=== PATIENT | female | born 1940 | race Caucasian/White ===

== ENCOUNTER → 2017-04-29 | Outpatient (CLI) | payer MEDICARE, MEDICAID ==
[~2017-04-29] MED LIST: ACETAMINOPHEN500 M3 PO; ACTOS30 MG PO; ACTOS45 M1 PO; ACTOS45 MG PO; AMARYL 4MG. TAB4 MG PO; AMBIEN 5MG TAB5 MG PO; AMLODIPINE BES1 CAP PO; AMOXICILLIN500 M2 PO; APAP/OXYCODONE1 TA1 PO; ASPIRIN 325MG325 MG PO; ASPIRIN EC325 MG PO; BENAZEPRIL HYDR20 MG PO; BENICAR20 MG PO; BISOPROLOL 5MG T5 MG PO; BYSTOLIC10 MG PO; BYSTOLIC20 MG PO; BYSTOLIC5 MG PO; CENTRUM SILVER1 TAB PO; CLARITIN10 MG PO; CRESTOR20 MG PO; FERROUS SULFAT325 M2 PO; GABAPENTIN 600600 MG PO; GLUCOPHAGE 500500 MG PO; GLYBURIDE 5MG TA5 MG PO; GLYBURIDE/METFO1 TA2 PO; Glyburide and M1 TAB; Glyburide and M1 TAB PO; HUMALOG MIX75/253 ML SC; HUMALOG100 U/ML SC; HYDROCODONE-APA1 TA1 PO; IMODIUM 2MG. CAP2 MG PO; LACTULOSE10 GM/15 M PO; LANTUS INS100 UNITS/ SC; LEVOFLOXACIN 5500 M1 PO; LORATADINE 10MG10 M1 PO; LORTAB 5/3251 TAB PO; LORTAB 5/500 501 TAB PO; LOTENSIN 20MG T20 MG PO; LOVENOX 4040 MG/0.4 SC; MACROBID100 M3 PO; MACRODANTIN100 MG PO; METFORMIN HCL1000 MG PO; MIRALAX(PO17 GM/1 PA PO; MIRALAX17 GM/DOSE PO; NEXIUM40 MG; NEXIUM40 MG PO; NORCO 325 MG-51 TAB PO; NOVOLOG MI100 UNITS/ SC; OSCAL 500MG. T500 MG PO; PHENERGAN 25MG.25 M1 PO; REGLAN 5MG TABLE5 MG PO; TYLENOL325 MG PO; URBAN 360 ML360 ML PO; VALIUM 5MG TABLE5 MG PO; VALIUM5 MG PO
--- NOTE | 2017-04-29 17:29 | RADIOLOGY REPORT PS360 ---
[id number] VIEWS HISTORY: FU FX HUMERUS Patient Age: 76 years: Female Ordering Physician: AVELINA MCNEILL MD TECHNIQUE: 3 views left shoulder COMPARISON :02/24/2017 FINDINGS The displaced fracture of the humeral neck is again identified. Medial /anterior displacement distal fracture fragment. The generous angulation at the fracture best seen on initial CT. Glenohumeral joint relationship grossly intact. Previous fixation of the left humeral shaft is noted distally from remote past. AC joint arthropathy. Demineralization. Pronounced Downward sloping of acromion noted IMPRESSION: Comminuted fracture of the neck of the humerus. Seems to be fairly stable position. Only question Some very early healing.
== END ==
LOC: RAD 12:29
DX: S42.202D Unspecified fracture of upper end of left humerus, subsequent encounter for fracture with routine healing (principal)

== ENCOUNTER 2017-07-04 21:26 | Inpatient (IN) | payer MEDICARE, MEDICAID ==
[~2017-07-04] VITALS: Ht 167.6 cm; Wt 88.5 kg
[~2017-07-04 21:26] MED LIST changes: +DIAZEPAM2 MG PO; -VALIUM 5MG TABLE5 MG PO
[2017-07-04 21:29] VITALS: BP 123/50
--- OUTSIDE RECORDS SUMMARY | 2017-07-04 21:36 | External Medical Summary Rpt | CCD ---
Author Author , MUKUL MENJIVARSEE Address Unknown Phone [email or web address] Care Team Providers Care Soliciting Freight Agent Name Role Phone [facility] Unavailable Unavailable ASSOCIATES, [facility] MANUEL MANSFIELD, Unavailable Unavailable MANUEL MANSFIELD [facility] Unavailable Unavailable INC, [facility], Unavailable Unavailable [facility] Unavailable Unavailable [facility], [facility] NELA SINGH, Unavailable Unavailable NELA SINGH [facility] Un[facility] Un[facility] COMM[facility]ITY [facility], [facility] Unavailable Unavailable INTERNAL MED, [facility] Unavailable Unavailable INTERNAL MEDI, [facility], [facility] ELADIO GRISSOM, Unavailable Unavailable ELADIO GRISSOM [facility] Unavailable Unavailable AMBULANCE SE, [facility], Unavailable Unavailable PLLC, [facility] Unavailable Unavailable SERVICE, [facility] Unavailable Unavailable HEALTH CARE, [facility] Purpose Continuity of Care Document - 08-22-2008 through 2016 Problems Code Diagnosis DOS Provider Status E119 TYPE 2 05-10-2017 [facility] DI[facility]ET[facility] WITHOUT COMPLICATIO NS E785 HYPERLIPIDE 05-10-2017 [facility] UNSPECIFIED HEALTH CARE G5630 LESION OF 05-10-2017 [place] RADIAL [facility] NERVE [facility] CARE UNSPECIFIED UPPER LIMB I10 ESSENTIAL 05-10-[address] [facility] HYPERTENSIO HEALTH CARE N K219 GASTRO-ESOP 05-10-2017 [facility] REFLUX [facility] DISEASE HEALTH CARE WITHOUT ESOPHAGITIS [id number] WRIST DROP 05-10-2017 [place] LEFT WRIST [facility] CARE N390 URINARY 05-10-2017 [place] TRACT [facility] INFECTION HEALTH CARE SITE NOT SPECIFIED [id number] UNS 05-10-2017 [facility] LOWER END HEALTH CARE UNS HUMERUS SEQUELA [id number] UNS FX 04-29-[address] [facility] LT HUMERUS INC SUBSQT FX RTN HLNG [id number] UNS DSPLCD 04-29-2017 [place] FX SURG MEDICAL NECK LT HUM IMAGING ASS SUB FX RTN HLNG [id number] OTHER LONG 04-14-2017 AZERBAIJANI [facility] HEALTH CURRENT ASSOCIATES DRUG THERAPY 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 R69 ILLNESS 03-12-2017 [place] [facility]PECIFIED [facility] E109 TYPE 1 03-11-2017 AZ[facility]IJ[facility] MELLITUS ASSOCIATES WITHOUT COMPLICATIO NS E875 HYPERKALEMI 03-11-2017 [facility] A [facility] E878 OTHER D/O 03-05-2017 AZERBAIJANI OF [facility] ELECTROLYTE ASSOCIATES AND FLUID BALANCE NEC R24850 PAIN IN 02-24-2017 [facility] RIGHT FOOT [facility] [id number] FX HUM FLW 02-24-2017 [facility] INSRT ORTHO [facility] IMPL JNT INC PROS/PLAT LT ARM [id number] DSPL FX 02-24-2017 [place] [facility] PHALANX RT IMAGING ASS GREAT TOE SBSQT FX RTN [id number] NONDSPL FX 02-24-2017 [facility] PROX PHALNX PHYSICIANS RT GREAT GROUP TOE SBSQT RTN [id number] DSPL FX 02-24-2017 [place] PR[facility] PHALNX MEDICAL RT LESSER IMAGING ASS TOES SBSQT FX RTN [id number] NONDSPLC FX 02-24-2017 [facility] PROX PHAL PHYSICIANS RT LESSER GROUP TOES SUB FX RTN J9811 ATELECTASIS 01-04-2017 [facility] J47834 PAIN IN 01-04-2017 [place] LEFT MEDICAL SHOULDER IMAGING ASS O44273 PAIN IN 01-04-2017 [place] LEFT WRIST MEDICAL IM[facility]ING ASS R39210 PAIN IN 01-04-2017 [place] LEFT HIP MEDICAL [facility] ASS M542 CERVICALGIA 01-04-2017 [facility] R0789 OTHER CHEST 01-04-2017 [place] PAIN [facility] [id number] CONTUSION 01-04-2017 [place] OF [facility] INITIAL IMAGING ASS ENCOUNTER [id number] UNS FX 01-04-2017 [facility] END PH[facility]ANS, LT HUMERUS PLLC INIT CLOS FRACTURE [id number] UNS DSPLCD 01-04-2017 [place] FX SURG MEDICAL NECK LT IMAGING ASS HUMERUS INIT CLOS FX [id number] NONDISPLACE 01-04-2017 [facility] UNS FX RT PHYSICIANS, GREAT TOE PLLC INIT CLOS FX [id number] DSPL FX 01-04-2017 [place] PR[facility]ICAL PHALANX RT IMAGING ASS GREAT TOE INIT CLOS FX [id number] DSPL FX 01-04-2017 [place] PROX PHALNX MEDICAL RT LESSER IMAGING ASS TOES INIT DAYO FX T07 UNSPECIFIED 01-04-2017 [facility] INJURIES AMBULANCE SE [id number] UNSPECIFIED 01-04-2017 [facility] INITIAL AMBULANCE ENCOUNTER SE Z794 PRISON 01-04-2017 [facility] CURRENT USE [facility] OF INSULIN INC R202 PARESTHESIA 10-20-2016 [facility] OF SKIN PHYSICIANS GROUP [id number] UNS FX 10-20-2016 [place] SHAFT HUM MEDICAL LT ARM IMAGING ASS SUBSQT ENC FX RTN HLNG D649 ANEMIA 09-15-2016 [facility] INTERNAL MEDI R05 COUGH 08-22-2016 [facility] SERVICE R296 REPEATED 08-16-2016 [facility] 55806 DIAB W/O 11-24-2008 SAMANTHA, COMP TYPE NELA E II/UNS NOT STATED UNCNTRL 2859 UNSPECIFIED 11-24-2008 SAMANTHA, ANEMIA NELA E 5990 URINARY 11-14-2008 SAMANTHA, TRACT NELA E INFECTION SITE NOT SPECIFIED 7241 PAIN IN 11-02-2008 [facility] 7242 LUMBAGO 11-02-2008 [facility] 88972 UNSPECIFIED 10-30-2008 SAMANTHA, NELA E CONSTIPATIO N 65823 ABDOMINAL 10-28-2008 [place] [facility] UNSPECIFIED SERVICES SITE ASSOCIATES 82410 UNS 09-22-2008 SAMANTHA, GASTRITIS&G NELA E ASTRODUODIT IS W/O MENTION HEMORR 2724 OTHER AND 08-22-2008 SAMANTHA, UNSPECIFIED NELA E HYPERLIPIDE GEORGE 4011 ESSENTIAL 08-22-2008 SAMANTHA, HYPERTENSIO NELA E N, BENIGN 05482 ABDOMINAL 08-22-2008 SAMANTHA, PAIN, NELA E EPIGASTRIC V5869 LONG-TERM 08-22-2008 [facility]CURRENT[facility] USE OF INC OTHER MEDICATIONS D64.9 ANEMIA, UNSPECIFIED E04.1 NONTOXIC SINGLE THYROID NODULE E11.9 TYPE 2 DIABETES MELLITUS WITHOUT COMPLICATIO NS G56.01 CARPAL TUNNEL SYNDROME, RIGHT UPPER LIMB G56.20 LESION OF ULNAR NERVE, UNSPECIFIED UPPER LIMB K11.7 DISTURBANCE S OF SALIVARY SECRETION K43.9 VENTRAL HERNIA WITHOUT OBSTRUCTION OR GANGRENE L29.9 PRURITUS, UNSPECIFIED N39.0 URINARY TRACT INFECTION, SITE NOT SPECIFIED R10.9 UNSPECIFIED ABDOMINAL PAIN R53.1 WEAKNESS R55 SYNCOPE AND COLLAPSE R94.31 ABNORMAL ELECTROCARD IOGRAM [ECG] [EKG] S20.219A CONTUSION OF UNSPECIFIED FRONT WALL OF THORAX, INIT ENCNTR S42.302A UNSP FRACTURE OF SHAFT OF HUMERUS, LEFT ARM, INIT S42.309A UNSP FRACTURE OF SHAFT OF HUMERUS, UNSP ARM, INIT S60.219A CONTUSION OF UNSPECIFIED WRIST, INITIAL ENCOUNTER S70.00XA CONTUSION OF UNSPECIFIED HIP, INITIAL ENCOUNTER S76.019A STRAIN OF MUSCLE, FASCIA AND TENDON OF UNSP HIP, INIT ENCNTR S92.911A UNSP FRACTURE OF RIGHT TOE(S), INIT FOR CLOS FX Allergies, Adverse Reactions, Alerts Clinical Alert Notifications Alert Diabetes: no eye exam in the last 365 days Diabetes: no lipid panel in the last 365 days Diabetes: no urine protein screening in the last 365 days Medications Na ND Rx Da Fi Fi Am Da Di Ph RX Ph St me C No te ll ll ou ys ag ar # ys at rm s nt no ma ic us Or Da si cy ia de te s n re d FE 00 01 11 0 60 30 ME 15 BE Ac RR 53 -2 -1 0. D 30 SS ti OU 61 3- 7- 00 CA 30 EN ve S 00 20 20 0 RE 66 JEAN 90 17 17 MA LF 1 PH TT AT AR HE E MA W 32 CY 5 MG LL C TA BL ET 00 01 11 0 30 30 ME 15 BE Ac TA 90 -2 -0 0. D 25 SS ti WA 45 3- 8- 00 CA 01 ON ve N 04 20 20 0 RE 82 AN [address] D 0 PH EP WA AR HE NE MA N RA CY A LS LL TA C BL ET OY 00 01 11 0 30 30 ME [address] 90 -2 -0 0. D 25 SS ti ER 41 3- 8- 00 CA 01 ON ve 88 20 20 0 RE 84 SH [address] EL 0 PH EP L AR HE CA MA N LC CY A IU M LL 50 C 0 MG TB LO 00 01 11 0 30 30 ME 15 BE Ac RA 78 -2 -0 0. D 25 SS ti TA 15 3- 8- 00 CA 01 ON ve DI 07 20 20 0 RE 85 NE [address] 1 PH EP 10 AR HE MA N MG CY A TA LL BL C ET 00 01 11 0 30 30 ME 15 BE Ac PI 53 -2 -0 0. D 23 SS ti RI 61 3- 6- 00 CA 71 ON ve N 05 20 20 0 RE 91 [address] 5 5 PH EP MG AR HE MA N TA CY A BL ET LL C FE 00 01 10 0 60 30 ME 15 BE Ac RR 53 -2 -1 0. D 13 SS ti OU 61 3- 8- 00 CA 37 EN ve S 00 20 20 0 RE 50 JEAN 90 17 17 MA LF 1 PH TT AT AR HE E MA W 32 CY 5 MG LL C TA BL ET 00 01 10 0 30 30 ME 15 BE Ac TA 90 -2 -0 0. D 08 SS ti WA 45 3- 9- 00 CA 24 ON ve N 04 20 20 0 RE 13 AN [address] D 0 PH EP WA AR HE NE MA N RA CY A LS LL TA C BL ET LO 00 01 10 0 30 30 ME 15 BE Ac RA 78 -2 -0 0. D 08 SS ti TA 15 3- 9- 00 CA 24 ON ve DI 07 20 20 0 RE 16 NE [address] 1 PH EP 10 AR HE MA N MG CY A TA LL BL C ET OY 00 01 10 0 30 30 ME [address] 90 -2 -0 0. D 08 SS ti ER 41 3- 9- 00 CA 24 ON ve 88 20 20 0 RE 15 SH [address] EL 0 PH EP L AR HE CA MA N LC CY A IU M LL 50 C 0 MG TB 00 01 10 0 30 30 ME 15 BE Ac PI 53 -2 -0 0. D 07 SS ti RI 61 3- 7- 00 CA 61 ON ve N 05 20 20 0 RE 02 [address] 5 5 PH EP MG AR HE MA N TA CY A BL ET LL C FE 00 01 09 0 60 30 ME 14 BE Ac RR 53 -2 -1 0. D 95 SS ti OU 61 3- 8- 00 CA 85 EN ve S 00 20 20 0 RE 37 JEAN 90 17 17 MA LF 1 PH TT AT AR HE E MA W 32 CY 5 MG LL C TA BL ET 00 01 09 0 30 30 ME 14 BE Ac TA 90 -2 -0 0. D 92 SS ti WA 45 3- 9- 00 CA 71 ON ve N 04 20 20 0 RE 10 AN [address] D 0 PH EP WA AR HE NE MA N RA CY A LS LL TA C BL ET LO 00 01 09 0 30 30 ME 14 BE Ac RA 78 -2 -0 0. D 92 SS ti TA 15 3- 9- 00 CA 71 ON ve DI 07 20 20 0 RE 12 NE [address] 1 PH EP 10 AR HE MA N MG CY A TA LL BL C ET OY 00 01 09 0 30 30 ME [address] 90 -2 -0 0. D 92 SS ti ER 41 3- 9- 00 CA 71 ON ve 88 20 20 0 RE 11 SH [address] EL 0 PH EP L AR HE CA MA N LC CY A IU M LL 50 C 0 MG TB 00 01 09 0 30 30 ME 14 BE Ac PI 53 -2 -0 0. D 90 SS ti RI 61 3- 8- 00 CA 84 ON ve N 05 20 20 0 RE 50 [address] 5 5 PH EP MG AR HE MA N TA CY A BL ET LL C FE 00 01 08 0 60 30 ME 14 BE Ac RR 53 -2 -1 0. D 79 SS ti OU 61 3- 9- 00 CA 04 EN ve S 00 20 20 0 RE 46 JEAN 90 17 17 MA LF 1 PH TT AT AR HE E MA W 32 CY 5 MG LL C TA BL ET OY 00 01 08 0 30 30 ME [address] 90 -2 -1 0. D 75 SS ti ER 41 3- 1- 00 CA 13 ON ve 88 20 20 0 RE 88 SH [address] EL 0 PH EP L AR HE CA MA N LC CY A IU M LL 50 C 0 MG TB LO 00 01 08 0 30 30 ME 14 BE Ac RA 78 -2 -1 0. D 75 SS ti TA 15 3- 1- 00 CA 13 ON ve DI 07 20 20 0 RE 89 NE [address] 1 PH EP 10 AR HE MA N MG CY A TA LL BL C ET 00 01 08 0 30 30 ME 14 BE Ac TA 90 -2 -1 0. D 75 SS ti WA 45 3- 1- 00 CA 13 ON ve N 04 20 20 0 RE 86 AN [address] D 0 PH EP WA AR HE NE MA N RA CY A LS LL TA C BL ET 00 01 08 0 30 30 ME 14 BE Ac PI 53 -2 -1 0. D 74 SS ti RI 61 3- 0- 00 CA 31 ON ve N 05 20 20 0 RE 14 [address] 5 5 PH EP MG AR HE MA N TA CY A BL ET LL C FE 00 01 07 0 60 30 ME 14 BE Ac RR 53 -2 -1 0. D 57 SS ti OU 61 3- 3- 00 CA 24 EN ve S 00 20 20 0 RE 94 JEAN 90 17 17 MA LF 1 PH TT AT AR HE E MA W 32 CY 5 MG LL C TA BL ET 00 01 07 0 30 30 ME 14 BE Ac TA 90 -2 -1 0. D 57 SS ti WA 45 3- 3- 00 CA 24 ON ve N 04 20 20 0 RE 95 AN [address] D 0 PH EP WA AR HE NE MA N RA CY A LS LL TA C BL ET OY 00 01 07 0 30 30 ME [address] 90 -2 -1 0. D 57 SS ti ER 41 3- 3- 00 CA 24 ON ve 88 20 20 0 RE 97 SH [address] EL 0 PH EP L AR HE CA MA N LC CY A IU M LL 50 C 0 MG TB LO 00 01 07 0 30 30 ME 14 BE Ac RA 78 -2 -1 0. D 57 SS ti TA 15 3- 3- 00 CA 24 ON ve DI 07 20 20 0 RE 98 NE [address] 1 PH EP 10 AR HE MA N MG CY A TA LL BL C ET 00 01 07 0 30 30 ME 14 BE Ac PI 53 -2 -1 0. D 56 SS ti RI 61 3- 2- 00 CA 50 ON ve N 05 20 20 0 RE 62 [address] 5 5 PH EP MG AR HE MA N TA CY A BL ET LL C LO 00 01 06 0 30 30 ME 14 BE Ac RA 78 -2 -1 0. D 38 SS ti TA 15 3- 4- 00 CA 83 ON ve DI 07 20 20 0 RE 06 NE [address] 1 PH EP 10 AR HE MA N MG CY A TA LL BL C ET OY 00 01 06 0 30 30 ME [address] 90 -2 -1 0. D 38 SS ti ER 41 3- 4- 00 CA 83 ON ve 88 20 20 0 RE 05 SH [address] EL 0 PH EP L AR HE CA MA N LC CY A IU M LL 50 C 0 MG TB 00 01 06 0 30 30 ME 14 BE Ac TA 90 -2 -1 0. D 38 SS ti WA 45 3- 4- 00 CA 83 ON ve N 04 20 20 0 RE 03 AN [address] D 0 PH EP WA AR HE NE MA N RA CY A LS LL TA C BL ET FE 00 01 06 0 60 30 ME 14 BE Ac RR 53 -2 -1 0. D 38 SS ti OU 61 3- 4- 00 CA 83 EN ve S 00 20 20 0 RE 02 JEAN 90 17 17 MA LF 1 PH TT AT AR HE E MA W 32 CY 5 MG LL C TA BL ET 00 01 06 0 30 30 ME 14 BE Ac PI 53 -2 -1 0. D 37 SS ti RI 61 3- 3- 00 CA 89 ON ve N 05 20 20 0 RE 73 [address] 5 5 PH EP MG AR HE MA N TA CY A BL ET LL C BI 00 06 06 0 70 7 ME 14 BE Ac SC 90 -0 -0 .0 D 31 SS ti OL 45 1- 1- 00 CA 47 ON ve AX 05 20 20 RE [address] 10 2 PH EP AR HE MG MA N CY A JEAN PP LL OS C IT OR Y OY 00 01 05 0 30 30 ME [address] 90 -2 -1 0. D 20 SS ti ER 41 3- 7- 00 CA 95 ON ve 88 20 20 0 RE 67 SH [address] EL 0 PH EP L AR HE CA MA N LC CY A IU M LL 50 C 0 MG TB FE 00 01 05 0 60 30 ME 14 BE Ac RR 53 -2 -1 0. D 20 SS ti OU 61 3- 7- 00 CA 95 EN ve S 00 20 20 0 RE 64 JEAN 90 17 17 MA LF 1 PH TT AT AR HE E MA W 32 CY 5 MG LL C TA BL ET LO 00 01 05 0 30 30 ME 14 BE Ac RA 78 -2 -1 0. D 20 SS ti TA 15 3- 7- 00 CA 95 ON ve DI 07 20 20 0 RE 68 NE [address] 1 PH EP 10 AR HE MA N MG CY A TA LL BL C ET 00 01 05 0 30 30 ME 14 BE Ac TA 90 -2 -1 0. D 20 SS ti WA 45 3- 7- 00 CA 95 ON ve N 04 20 20 0 RE 65 AN [address] D 0 PH EP WA AR HE NE MA N RA CY A LS LL TA C BL ET 00 01 05 0 30 30 ME 14 BE Ac PI 53 -2 -1 0. D 19 SS ti RI 61 3- 6- 00 CA 54 ON ve N 05 20 20 0 RE 67 [address] 5 5 PH EP MG AR HE MA N TA CY A BL ET LL C 00 01 04 0 30 30 ME 14 BE Ac TA 90 -2 -1 0. D 06 SS ti WA 45 3- 9- 00 CA 31 ON ve N 04 20 20 0 RE 56 AN [address] D 0 PH EP WA AR HE NE MA N RA CY A LS LL TA C BL ET FE 00 01 04 0 60 30 ME 14 BE Ac RR 53 -2 -1 0. D 06 SS ti OU 61 3- 9- 00 CA 31 EN ve S 00 20 20 0 RE 55 JEAN 90 17 17 MA LF 1 PH TT AT AR HE E MA W 32 CY 5 MG LL C TA BL ET LO 00 01 04 0 30 30 ME 14 BE Ac RA 78 -2 -1 0. D 06 SS ti TA 15 3- 9- 00 CA 31 ON ve DI 07 20 20 0 RE 59 NE [address] 1 PH EP 10 AR HE MA N MG CY A TA LL BL C ET OY 00 01 04 0 30 30 ME [address] 90 -2 -1 0. D 06 SS ti ER 41 3- 9- 00 CA 31 ON ve 88 20 20 0 RE 58 SH [address] EL 0 PH EP L AR HE CA MA N LC CY A IU M LL 50 C 0 MG TB 00 01 04 0 30 30 ME 14 BE Ac PI 53 -2 -1 0. D 02 SS ti RI 61 3- 2- 00 CA 92 ON ve N 05 20 20 0 RE 50 [address] 5 5 PH EP MG AR HE MA N TA CY A BL ET LL C FE 00 01 03 0 60 30 ME 13 BE Ac RR 53 -2 -2 0. D 91 SS ti OU 61 3- 1- 00 CA 72 EN ve S 00 20 20 0 RE 31 JEAN 90 17 17 MA LF 1 PH TT AT AR HE E MA W 32 CY 5 MG LL C TA BL ET OY 00 01 03 0 30 30 ME [address] 90 -2 -2 0. D 91 SS ti ER 41 3- 1- 00 CA 72 ON ve 88 20 20 0 RE 34 SH [address] EL 0 PH EP L AR HE CA MA N LC CY A IU M LL 50 C 0 MG TB 00 01 03 0 30 30 ME 13 BE Ac TA 90 -2 -2 0. D 91 SS ti WA 45 3- 1- 00 CA 72 ON ve N 04 20 20 0 RE 32 AN [address] D 0 PH EP WA AR HE NE MA N RA CY A LS LL TA C BL ET LO 00 01 03 0 30 30 ME 13 BE Ac RA 78 -2 -2 0. D 91 SS ti TA 15 3- 1- 00 CA 72 ON ve DI 07 20 20 0 RE 35 NE [address] 1 PH EP 10 AR HE MA N MG CY A TA LL BL C ET 00 01 03 0 30 30 ME 13 BE Ac PI 53 -2 -1 0. D 90 SS ti RI 61 3- 6- 00 CA 99 ON ve N 05 20 20 0 RE 02 [address] 5 5 PH EP MG AR HE MA N TA CY A BL ET LL C OY 00 01 02 0 30 30 ME [address] 90 -2 -2 0. D 77 SS ti ER 41 3- 0- 00 CA 01 ON ve 88 20 20 0 RE 58 SH [address] EL 0 PH EP L AR HE CA MA N LC CY A IU M LL 50 C 0 MG TB 00 01 02 0 30 30 ME 13 BE Ac TA 90 -2 -2 0. D 77 SS ti WA 45 3- 0- 00 CA 01 ON ve N 04 20 20 0 RE 55 AN [address] D 0 PH EP WA AR HE NE MA N RA CY A LS LL TA C BL ET LO 00 01 02 0 30 30 ME 13 BE Ac RA 78 -2 -2 0. D 77 SS ti TA 15 3- 0- 00 CA 01 ON ve DI 07 20 20 0 RE 60 NE [address] 1 PH EP 10 AR HE MA N MG CY A TA LL BL C ET FE 00 01 02 0 60 30 ME 13 BE Ac RR 90 -2 -2 0. D 77 SS ti OU 47 3- 0- 00 CA 01 EN ve S 59 20 20 0 RE 54 JEAN 18 17 17 MA LF 0 PH TT AT AR HE E MA W 32 CY 5 MG LL C TA BL ET 00 01 02 0 30 30 ME 13 BE Ac PI 53 -2 -2 0. D 76 SS ti RI 61 3- 0- 00 CA 57 ON ve N 05 20 20 0 RE 10 [address] 5 5 PH EP MG AR HE MA N TA CY A BL ET LL C FE 00 01 01 0 60 30 ME 13 BE Ac RR 90 -2 -2 0. D 64 SS ti OU 47 3- 3- 00 CA 38 EN ve S 59 20 20 0 RE 15 JEAN 18 17 17 MA LF 0 PH TT AT AR HE E MA W 32 CY 5 MG LL C TA BL ET 00 01 01 0 30 30 ME 13 BE Ac TA 90 -2 -2 0. D 64 SS ti WA 45 3- 3- 00 CA 38 ON ve N 04 20 20 0 RE 17 AN [address] D 0 PH EP WA AR HE NE MA N RA CY A LS LL TA C BL ET OY 00 01 01 0 30 30 ME [address] 90 -2 -2 0. D 64 SS ti ER 41 3- 3- 00 CA 38 ON ve 88 20 20 0 RE 24 SH [address] EL 0 PH EP L AR HE CA MA N LC CY A IU M LL 50 C 0 MG TB 00 01 01 0 30 30 ME 13 BE Ac PI 53 -2 -2 0. D 64 SS ti RI 61 3- 3- 00 CA 38 ON ve N 05 20 20 0 RE 27 [address] 5 5 PH EP MG AR HE MA N TA CY A BL ET LL C LO 00 01 01 0 30 30 ME 13 BE Ac RA 78 -2 -2 0. D 64 SS ti TA 15 3- 3- 00 CA 38 ON ve DI 07 20 20 0 RE 26 NE [address] 1 PH EP 10 AR HE MA N MG CY A TA LL BL C ET Encounters Encounter Start End Date Code Location Performer Type Date [facility] [address] [place] [address] [facility] [address] [place] [address] - [facility] [address] [place] [address] [facility] OTHER 7 [facility] [place] [facility] 7 7 [facility] 7 7 [facility] [place] [facility] [address] [facility] [place] [facility] 7 7 [facility] [place] [facility] [address] [facility] [place] [facility] [address] [facility] [place] [facility] [address] [facility] [place] [facility] [address] [facility] [place] [facility] [address] [facility] 6 6 [facility] - 9 9 [facility] - 9 9 [facility] - 9 9 [facility]
--- OUTSIDE RECORDS SUMMARY | 2017-07-04 21:36 | External Medical Summary Rpt | CCD ---
Author Author , MUKUL MENJIVARSEE Address Unknown Phone [email or web address] Care Team Providers Care Matzo Forming Machine Operator Name Role Phone [facility] Unavailable Unavailable ASSOCIATES, [facility] [employer] [facility] MANUEL MANSFIELD, Unavailable Unavailable MANUEL MANSFIELD [facility] Unavailable Unavailable INC, [facility] Unavailable Unavailable [facility] Unavailable Unavailable [facility], [facility] NELA SINGH, Unavailable Unavailable NELA SINGH [facility] Unavailable Unavailable [facility], [facility] Unavailable Unavailable [facility], [facility] Unavailable Unavailable [facility], [facility], [facility] ELADIO GRISSOM, Unavailable Unavailable ELADIO GRISSOM [facility] Unavailable Unavailable AMBULANCE SE, [facility], Unavailable Unavailable PLLC, [facility] Unavailable Unavailable SERVICE, [facility] Unavailable Unavailable HEALTH CARE, [facility] Purpose Continuity of Care Document - 08-22-2008 through 2016 Problems Code Diagnosis DOS Provider Status E119 TYPE 2 05-10-2017 [place] DIABET[facility] WITHOUT COMPLICATIO NS E785 HYPERLIPIDE 05-10-2017 [facility] UNSPECIFIED HEALTH CARE G5630 LESION OF 05-10-2017 [place] RADIAL [facility] UNSPECIFIED UPPER LIMB I10 ESSENTIAL 05-10-2017 [facility] HYPERTENSIO HEALTH CARE N K219 GASTRO-ESOP 05-10-2017 [facility] REFLUX [facility] DIS[facility]ASE [facility] WITHOUT ESOPHAGITIS [id number] WRIST DROP 05-10-2017 [place] LEFT WRIST [facility] C[facility] N390 URINARY 05-10-2017 [place] TRACT [facility] INFECTION [facility] SITE NOT SPECIFIED [id number] UNS 05-10-2017 [facility] UNS HUMERUS SEQUELA [id number] UNS FX 04-29-2017 [place] [facility] HUMERUS INC SUBSQT FX RTN HLNG [id number] UNS DSPLCD 04-29-2017 [place] [facility]ICAL NECK LT HUM IMAGING ASS SUB FX RTN HLNG [id number] OTHER LONG 04-14-[address] 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 R69 ILLNESS 03-12-2017 [place] [facility]NSPECIFIED [facility] E109 TYPE 1 03-11-2017 [facility] WITHOUT COMPLICATIO NS E875 HYPERKALEMI 03-11-2017 [facility] E878 OTHER D/O 03-05-2017 [facility] ELECTROLYTE ASSOCIATES AND FLUID BALANCE NEC V22940 PAIN IN 02-24-2017 [facility] RIGHT [facility]OT [facility] Q25721 FX HUM FLW 02-24-2017 [facility] INSRT ORTHO [facility] IMPL JNT INC PROS/PLAT LT ARM [id number] DSPL FX 02-24-2017 [place] [facility] RT IMAGING ASS GREAT TOE SBSQT FX RTN [id number] NONDSPL FX 02-24-2017 [facility] PROX PHALNX PHYSICIANS RT GREAT GROUP TOE SBSQT RTN U58974S DSPL FX 02-24-2017 [place] PR[facility] PHALNX MEDICAL RT LESSER IMAGING ASS TOES SBSQT FX RTN [id number] NONDSPLC FX 02-24-2017 [facility] PROX PHAL PHYSICIANS RT LESSER GROUP TOES SUB FX RTN J9811 ATELECTASIS 01-04-2017 [facility] Q50411 PAIN IN 01-04-2017 [place] LEFT MEDICAL SHOULDER IM[facility] C21031 PAIN IN 01-04-2017 [place] LEFT WRIST [facility]ICAL [facility] B16786 PAIN IN 01-04-2017 [place] LEFT HIP [facility]ICAL [facility] M542 CERVICALGIA 01-04-2017 [facility] R0789 OTHER CHEST 01-04-2017 [place] [facility]IN [facility] H5111YU CONTUSION 01-04-2017 [place] OF [facility] INITIAL IMAGING ASS ENCOUNTER U06647Q UNS FX 01-04-2017 [facility] END [facility], LT HUMERUS PLLC INIT CLOS FRACTURE K76242S UNS DSPLCD 01-04-2017 [place] FX SURG MEDICAL NECK LT IMAGING ASS HUMERUS INIT CLOS FX [id number] NONDISPLACE 01-04-2017 [facility] UNS FX RT PHYSICIANS, GREAT TOE PLLC INIT CLOS FX [id number] DSPL FX 01-04-2017 [place] PROX [facility]ICAL PHALANX RT IMAGING ASS GREAT TOE INIT CLOS FX [id number] DSPL FX 01-04-2017 [place] PROX PHALNX MEDICAL RT LESSER IMAGING ASS TOES INIT DAYO FX T07 UNSPECIFIED 01-04-2017 [facility] INJURIES AMBULANCE SE [id number] UNSPECIFIED 01-04-2017 [facility] INITIAL AMBULANCE ENCOUNTER SE Z794 NURSING HOME 01-04-2017 [facility] CURRENT USE [facility] OF INSULIN INC R202 PARESTHESIA 10-20-2016 [facility] OF SKIN PHYSICIANS GROUP U27927N UNS FX 10-20-2016 [place] SHAFT HUM MEDICAL LT ARM IMAGING ASS SUBSQT ENC FX RTN HLNG D649 ANEMIA 09-15-2016 [place] [facility] INTERNAL MEDI R05 COUGH 08-22-2016 [facility] R296 REPEATED 08-16-2016 [place] [facility] MED 97893 DIAB W/O 11-24-2008 SAMANTHA, COMP TYPE NELA E II/UNS NOT STATED UNCNTRL 2859 UNSPECIFIED 11-24-2008 SAMANTHA, ANEMIA NELA E 5990 URINARY 11-14-2008 SAMANTHA, TRACT NELA E INFECTION SITE NOT SPECIFIED 7241 PAIN IN 11-02-2008 [place] [facility] 7242 LUMBAGO 11-02-2008 [facility] 74885 UNSPECIFIED 10-30-2008 SAMANTHA, NELA E CONSTIPATIO N 22782 ABDOMINAL 10-28-2008 [place] [facility] UNSPECIFIED SERVICES SITE ASSOCIATES 50988 UNS 09-22-2008 SAMANTHA, GASTRITIS&G NELA E ASTRODUODIT IS W/O MENTION HEMORR 2724 OTHER AND 08-22-2008 SAMANTHA, UNSPECIFIED NELA E HYPERLIPIDE GEORGE 4011 ESSENTIAL 08-22-2008 SAMANTHA, HYPERTENSIO NELA E N, BENIGN 10763 ABDOMINAL 08-22-2008 SAMANTHA, PAIN, NELA E EPIGASTRIC [...] -2 -0 0. D 25 SS ti ND 45 3- 8- 00 CA 01 ON ve N 04 20 20 0 RE 82 AN [address] D 0 PH EP ND AR HE NE MA N RA CY [...] -2 -0 0. D 08 SS ti ND 45 3- 9- 00 CA 24 ON ve N 04 20 20 0 RE 13 AN [address] D 0 PH EP ND AR HE NE MA N RA CY [...] -2 -0 0. D 92 SS ti ND 45 3- 9- 00 CA 71 ON ve N 04 20 20 0 RE 10 AN [address] D 0 PH EP ND AR HE NE MA N RA CY [...] -2 -1 0. D 75 SS ti ND 45 3- 1- 00 CA 13 ON ve N 04 20 20 0 RE 86 AN [address] D 0 PH EP ND AR HE NE MA N RA CY [...] -2 -1 0. D 57 SS ti ND 45 3- 3- 00 CA 24 ON ve N 04 20 20 0 RE 95 AN [address] D 0 PH EP ND AR HE NE MA N RA CY [...] -2 -1 0. D 38 SS ti ND 45 3- 4- 00 CA 83 ON ve N 04 20 20 0 RE 03 AN [address] D 0 PH EP ND AR HE NE MA N RA CY [...] -2 -1 0. D 20 SS ti ND 45 3- 7- 00 CA 95 ON ve N 04 20 20 0 RE 65 AN [address] D 0 PH EP ND AR HE NE MA N RA CY [...] -2 -1 0. D 06 SS ti ND 45 3- 9- 00 CA 31 ON ve N 04 20 20 0 RE 56 AN [address] D 0 PH EP ND AR HE NE MA N RA CY [...] -2 -2 0. D 91 SS ti ND 45 3- 1- 00 CA 72 ON ve N 04 20 20 0 RE 32 AN [address] D 0 PH EP ND AR HE NE MA N RA CY [...] -2 -2 0. D 77 SS ti ND 45 3- 0- 00 CA 01 ON ve N 04 20 20 0 RE 55 AN [address] D 0 PH EP ND AR HE NE MA N RA CY [...] -2 -2 0. D 64 SS ti ND 45 3- 3- 00 CA 38 ON ve N 04 20 20 0 RE 17 AN [address] D 0 PH EP ND AR HE NE MA N RA CY [...] End Date Code Location Performer Type Date [facility] [place] [facility] [address] [place] [address] [place] [facility] [place] [facility] [address] [place] [address] - [place] [facility] [address] [place] [address] [facility] 7 7 [facility] OTHER 7 [address] [facility] [place] [facility] 7 [facility] - 7 7 [facility] ON LICENSE OF [facility] [place] [facility] - 7 7 [facility] ON LICENSE OF [facility] [place] [facility] 7 7 [facility] [place] [facility] - 7 7 [facility] ON LICENSE OF [facility] [place] [facility] 7 7 [facility] [place] [facility] 7 7 [facility] [place] [facility] 7 7 [facility] [place] [facility] 7 7 [facility] [place] [facility] 6 6 [facility] [place] [facility] 6 6 [facility] - 9 9 [facility] - 9 9 [facility] - 9 9 [facility]
--- OUTSIDE RECORDS SUMMARY | 2017-07-04 21:39 | External Medical Summary Rpt ---
Author Author TIARASEE Axxana, MUKUL Axxana Organization [employer] Address Unknown Phone Unavailable Results Thyroxine (T4) free [Mass/volume] in Serum or Plasma Observa Value Referen Units Interpr Notes Date tion ce etation Range Thyroxine 0.76 - ng/dL Normal No Feb 19 (T4) 1.46 informati 2016 2:00 free on in PM [Mass/vol source ume] in data Serum or Plasma Thyrotropin [Units/volume] in Serum or Plasma Observa Value Referen Units Interpr Notes Date tion ce etation Range Thyrotrop 0.358 - uIU/ml No No Feb 19 in 3.740 informati informati 2016 2:00 [Units/vo on in on in PM lume] in source source Serum or data data Plasma Free T4 & TSH panel in Serum or Plasma Observa Value Referen Units Interpr Notes Date tion ce etation Range Thyroxine 5.93 - ug/dl Low No January 04 (T4) 13.13 informati 2016 3:45 free on in AM index in source Serum or data Plasma Triiodoth 31 - 39 % Normal No January 04 yronine informati 2016 3:45 (T3) on in AM resin source uptake in data Serum or Plasma Thyroxine 4.7 - ug/dl Normal No January 04 (T4) 13.3 informati 2016 3:45 [Mass/vol on in AM ume] in source Serum or data Plasma Thyrotrop 0.358 - uIU/ml High No January 04 in 3.740 informati 2016 3:45 [Units/vo on in AM lume] in source Serum or data Plasma INR in Blood by Coagulation assay Observa Value Referen Units Interpr Notes Date tion ce etation Range IS PATIENT ON ANTICOAGULANTS? N PTT RESULTS MUST BE CALLED IF PT ON HEPARIN!!! Y INR in 0.9 - 1.1 No Normal INDICATIO January 04 Blood by informati N 2016 3:45 Coagulati on in AM on assay source INR data RANGETHER APY FOR DVT, PE, ATRIAL FIB; 2.0 - 3.0PROPHY LAXIS FOR VTETHERAP Y FOR MECHANICA L HEART 2.5 - 3.5VALVE; PREVENTIO N OF SYSTEMICE MBOLISM SECONDARY TO AMI Prothromb 9.4 - SECONDS Normal No January 04 in time 11.8 inform2016 3:45 (PT) in on in AM Platelet source poor data plasma by Coagulati on assay CBC W Auto Differential panel in Blood Observa Value Referen Units Interpr Notes Date tion ce etation Range Basophils 0 - 0.2 K/MM3 Normal No January 042016 3:15 [#/volume on in AM ] in source Blood by data Automated count Basophils 0.1 - 2.0 % Normal No January 04 / informati 2016 3:15 leukocyte on in AM s in source Blood by data Automated count Eosinophi 0.0 - 0.4 K/mm3 Normal January 04 ls ati 2016 3:15 [#/volume on in AM ] in source Blood by data Automated count Eosinophi 0.1 - % Normal January 04 ls/100 12.0 informati 2016 3:15 leukocyte on in AM s in source Blood by data Automated count Granulocy 1.8 - 7.8 K/mm3 Normal No January 04 lola ati 2016 3:15 [#/volume on in AM ] in source Blood by data Automated count Granulocy 37.0 - % Normal No January 04 lola/100 80.0 informati 2016 3:15 leukocyte on in AM s in source Blood by data Automated count Hematocri 37.0 - % Low January 04 t [Volume 47.0 ati 2016 3:15 on in AM Fraction] source of Blood data Hemoglobi 12.2 - g/dL Low No January 04 n 16.2 informati 2016 3:15 [Mass/vol on in AM ume] in source Blood data Lymphocyt 0.7 - 4.5 K/mm3 Normal No January 04 es informati 2016 3:15 [#/volume on in AM ] in source Unspecifi data ed specimen by Automated count Lymphocyt 10 - 50.0 % Normal No January 04 es informati 2016 3:15 [#/volume on in AM ] in source Unspecifi data ed specimen by Automated count Erythrocy 27 - 31.2 pg Normal No January 04 te mean informati 2016 3:15 corpuscul on in AM ar source hemoglobi data n [Entitic mass] Erythrocy 31.8 - g/dl Low No January 04 te mean 35.4 informati 2016 3:15 corpuscul on in AM ar source hemoglobi data n concentra tion [Mass/vol ume] by Automated count Erythrocy 82.2 - fl Normal No January 04 te mean 97.8 informati 2016 3:15 corpuscul on in AM ar volume source [Entitic data volume] by Automated count Monocytes 0.1 - 1.0 K/mm3 Normal No January 04 informati 2016 3:15 [#/volume on in AM ] in source Blood by data Automated count Monocytes 1.7 - 9.3 % Normal No January 04 /100 informati 2016 3:15 leukocyte on in AM s in source Blood by data Automated count Platelet 7.4 - fl Normal January 04 mean 10.4 informati 2016 3:15 volume on in AM [Entitic source volume] data in Blood by Automated count Platelets 142 - 424 K/mm3 No No January 04 informati informati 2016 3:15 [#/volume on in on in AM ] in source source Blood data data Erythrocy 4.2 - 5.4 M/mm3 Low No January 04 lola informati 2016 3:15 [#/volume on in AM ] in source Amniotic data fluid Erythrocy 11.5 - % Normal No January 04 te 17.5 informati 2016 3:15 distribut on in AM ion width source [Entitic data volume] by Automated count Leukocyte 4.8 - K/MM3 Normal No January 04 s 10.8 informati 2016 3:15 [#/volume on in AM ] in source Blood data
--- OUTSIDE RECORDS SUMMARY | 2017-07-04 21:39 | External Medical Summary Rpt | CCD ---
Author Author , MUKUL Organization [employer] Address Unknown Phone [email or web address] Immunization Name Date Rout CVX Reac Dose Comm Prov Is Faci e tion ent ider Refu lity Give sed n Td 03-0 9 999 Hist H149 No H149 (rekha 4-19 oric lt), 97 al Info adso rmat rbed ion - Sour ce Unsp ecif ied
--- OUTSIDE RECORDS SUMMARY | 2017-07-04 21:39 | External Medical Summary Rpt | CCD ---
Author Author , MUKUL MENJIVARSEE Address Unknown Phone [email or web address] Care Team Providers Care Dip Tube Assembler Machine Name Role Phone [facility] Unavailable Unavailable ASSOC[facility]ATES, [facility] Unavailable Unavailable [facility] Unavailable Unavailable INC, [facility], Unavailable Unavailable [facility] Unavailable Unavailable IM[facility]ING [facility], [facility] NELA SINGH, Unavailable Unavailable NELA SINGH [facility] Unavailable Unavailable COMMUNITY ACT, [facility] Unavailable Unavailable INTERNAL MED, [facility] INTERNAL MED [facility] Unavailable Unavailable INTERNAL MEDI, [facility] INTERNAL MEDI [facility]available [facility], [facility] ELADIO GRISSOM, Unavailable Unavailable ELADIO GRISSOM [facility] Unavailable Unavailable AMBULANCE SE, [facility] AMBULANCE SE [facility], Unavailable Unavailable PLLC, [facility] Unavailable Unavailable SERVICE, [facility] Unavailable Unavailable HEALTH CARE, [facility] Purpose Continuity of Care Document - 08-22-2008 through 2016 Problems Code Diagnosis DOS Provider Status E119 TYPE 2 05-10-2017 [place] DIABETES [facility] MELLITUS HEALTH CARE WITHOUT COMPLICATIO NS E785 HYPERLIPIDE 05-10-2017 [facility] UNSPECIFIED HEALTH CARE G5630 LESION OF 05-10-2017 [facility] NERVE [facility] CARE UNSPECIFIED UPPER LIMB I10 ESSENTIAL 05-10-2017 [facility] HYPERTENSIO HEALTH CARE N K219 GASTRO-ESOP 05-10-2017 [facility] REFLUX [facility] DISEASE HEALTH CARE WITHOUT ESOPHAGITIS B99100 WRIST DROP 05-10-2017 [place] LEFT WRIST [facility] N390 URINARY 05-10-2017 [place] TRACT [facility] INFECTION HEALTH CARE SITE NOT SPECIFIED [id number] UNS 05-10-2017 [facility]ARE UNS HUMERUS SEQUELA [id number] UNS FX 04-29-2017 [facility] LT HUMERUS INC SUBSQT FX RTN HLNG [id number] UNS DSPLCD 04-29-2017 [place] FX SURG MEDICAL NECK LT HUM IMAGING ASS SUB FX RTN HLNG L57956 OTHER LONG 04-14-2017 [facility] CURRENT ASSOCIATES DRUG THERAPY 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 [facility] SINGLE PHYSICIANS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 R69 ILLNESS 03-12-2017 [place] UNSPECIFIED [facility] E109 TYPE 1 03-11-2017 [place] DIABETES [facility] MELLITUS ASSOCIATES WITHOUT COMPLICATIO NS E875 HYPERKALEMI 03-11-2017 [facility] E878 OTHER D/O 03-05-2017 [place] ELECTROLYTE ASSOCIATES AND FLUID BALANCE [facility] H39569 PAIN IN 02-24-2017 [facility] RIGHT FOOT [facility] F76746 FX HUM FLW 02-24-2017 [facility] INS[facility]THO [facility] IMPL JNT INC PROS/PLAT LT ARM [id number] DSPL FX 02-24-2017 [place] PROX MEDICAL PHALANX RT IMAGING ASS GREAT TOE SBSQT FX RTN [id number] NONDSPL FX 02-24-2017 [facility] PROX PHALNX PHYSICIANS RT GREAT GROUP TOE SBSQT RTN [id number] DSPL FX 02-24-2017 [place] PROX PHALNX MEDICAL RT LESSER IMAGING ASS TOES SBSQT FX RTN [id number] NONDSPLC FX 02-24-2017 [facility] PROX PHAL PHYSICIANS RT LESSER GROUP TOES SUB FX RTN J9811 ATELECTASIS 01-04-2017 [facility] R57425 PAIN IN 01-04-2017 [place] LEFT MEDICAL SHOULDER IMAGING ASS S75911 PAIN IN 01-04-2017 [place] LEFT WRIST MEDICAL IMAGING ASS B29615 PAIN IN 01-04-2017 [place] LEFT HIP MEDICAL IMAGING ASS M542 CERVICALGIA 01-04-2017 [facility] R0789 OTHER CHEST 01-04-2017 [place] PAIN MEDICAL IMAGING ASS [id number] CONTUSION 01-04-2017 [place] OF [place] MEDICAL INITIAL IMAGING ASS ENCOUNTER [id number] UNS FX 01-04-2017 [facility], LT HUMERUS PLLC INIT CLOS FRACTURE B56559B UNS DSPLCD 01-04-2017 [place] FX SURG MEDICAL NECK LT IMAGING ASS HUMERUS INIT CLOS FX [id number] NONDISPLACE 01-04-2017 [facility] UNS FX RT PHYSICIANS, GREAT TOE PLLC INIT CLOS FX [id number] DSPL FX 01-04-2017 [place] PROX MEDICAL PHALANX RT IMAGING ASS GREAT TOE INIT CLOS FX [id number] DSPL FX 01-04-2017 [place] PROX PHALNX MEDICAL RT LESSER IMAGING ASS TOES INIT DAYO FX T07 UNSPECIFIED 01-04-2017 [facility] INJURIES AMBULANCE SE [id number] UNSPECIFIED 01-04-2017 [facility] INITIAL AMBULANCE ENCOUNTER SE Z794 MCC 01-04-2017 [facility] CURRENT USE [facility] OF INSULIN INC R202 PARESTHESIA 10-20-2016 [facility] OF SKIN PHYSICIANS GROUP [id number] UNS FX 10-20-2016 [place] SHAFT HUM MEDICAL LT ARM IMAGING ASS SUBSQT ENC FX RTN HLNG D649 ANEMIA 09-15-2016 [place] [facility] INTERNAL MEDI R05 COUGH 08-22-2016 [facility] SERV[facility] R296 REPEATED 08-16-2016 [facility] MED 31187 DIAB W/O 11-24-2008 SAMANTHA, COMP TYPE NELA E II/UNS NOT STATED UNCNTRL 2859 UNSPECIFIED 11-24-2008 SAMANTHA, ANEMIA NELA E 5990 URINARY 11-14-2008 SAMANTHA, TRACT NELA E INFECTION SITE NOT SPECIFIED 7241 PAIN IN 11-02-2008 [place] [facility] 7242 LUMBAGO 11-02-2008 [facility] 42427 UNSPECIFIED 10-30-2008 SAMANTHA, NELA E CONSTIPATIO N 96880 ABDOMINAL 10-28-2008 [facility]IN, EMERGENCY UNSPECIFIED SERVICES SITE ASSOCIATES 48458 UNS 09-22-2008 SAMANTHA, GASTRITIS&G NELA E ASTRODUODIT IS W/O MENTION HEMORR 2724 OTHER AND 08-22-2008 SAMANTHA, UNSPECIFIED NELA E HYPERLIPIDE GEORGE 4011 ESSENTIAL 08-22-2008 SAMANTHA, HYPERTENSIO NELA E N, BENIGN 35488 ABDOMINAL 08-22-2008 SAMANTHA, PAIN, NELA E EPIGASTRIC V5869 LONG-TERM 08-22-2008 [facility] USE OF INC OTHER MEDICATIONS Medications Na ND Rx Da Fi Fi [...] -2 -0 0. D 25 SS ti PA 45 3- 8- 00 CA 01 ON ve N 04 20 20 0 RE 82 AN [address] D 0 PH EP PA AR HE NE MA N RA CY [...] C TA BL ET LO 00 01 10 0 30 30 ME 15 BE Ac RA 78 -2 -0 0. D 08 SS ti TA 15 3- 9- 00 CA 24 ON ve DI 07 20 20 0 RE 16 NE [address] 1 PH EP 10 AR HE MA N MG CY A TA LL BL C ET 00 01 10 0 30 30 ME 15 BE Ac TA 90 -2 -0 0. D 08 SS ti PA 45 3- 9- 00 CA 24 ON ve N 04 20 20 0 RE 13 AN [address] D 0 PH EP PA AR HE NE MA N RA CY A LS LL TA C BL ET OY 00 01 10 0 30 [...] -2 -0 0. D 92 SS ti PA 45 3- 9- 00 CA 71 ON ve N 04 20 20 0 RE 10 AN [address] D 0 PH EP PA AR HE NE MA N RA CY [...] LL C TA BL ET 00 01 08 0 30 30 ME 14 BE Ac TA 90 -2 -1 0. D 75 SS ti PA 45 3- 1- 00 CA 13 ON ve N 04 20 20 0 RE 86 AN [address] D 0 PH EP PA AR HE NE MA N RA CY A LS LL TA C BL ET OY 00 01 08 0 [...] A BL ET LL C 00 01 07 0 30 30 ME 14 BE Ac TA 90 -2 -1 0. D 57 SS ti PA 45 3- 3- 00 CA 24 ON ve N 04 20 20 0 RE 95 AN [address] D 0 PH EP PA AR HE NE MA N RA CY [...] LL BL C ET FE 00 01 07 0 60 30 [...] BL ET LL C OY 00 01 06 0 30 30 [...] -2 -1 0. D 38 SS ti PA 45 3- 4- 00 CA 83 ON ve N 04 20 20 0 RE 03 AN [address] D 0 PH EP PA AR HE NE MA N RA CY [...] C TA BL ET LO 00 01 06 0 30 30 ME 14 BE Ac RA 78 -2 -1 0. D 38 SS ti TA 15 3- 4- 00 CA 83 ON ve DI 07 20 20 0 RE 06 NE [address] 1 PH EP 10 AR HE MA N MG CY A TA LL BL C ET 00 01 06 0 30 30 [...] PP LL OS C IT OR Y 00 01 05 0 30 30 ME 14 BE Ac TA 90 -2 -1 0. D 20 SS ti PA 45 3- 7- 00 CA 95 ON ve N 04 20 20 0 RE 65 AN [address] D 0 PH EP PA AR HE NE MA N RA CY A LS LL TA C BL ET OY 00 01 05 0 30 30 [...] C 0 MG TB LO 00 01 05 0 30 30 ME 14 BE Ac RA 78 -2 -1 0. D 20 SS ti TA 15 3- 7- 00 CA 95 ON ve DI 07 20 20 0 RE 68 NE [address] 1 PH EP 10 AR HE MA N MG CY A TA LL BL C ET FE 00 01 05 0 60 30 ME 14 BE Ac RR 53 -2 -1 0. D 20 SS ti OU 61 3- 7- 00 CA 95 EN ve S 00 20 20 0 RE 64 JEAN 90 17 17 MA LF 1 PH TT AT AR HE E MA W 32 CY 5 MG LL C TA BL ET 00 01 05 0 30 30 ME 14 BE Ac PI 53 -2 -1 0. D 19 SS ti RI 61 3- 6- 00 CA 54 ON ve N 05 20 20 0 RE 67 [address] 5 5 PH EP MG AR HE MA N TA CY A BL ET LL C LO 00 01 04 0 30 30 [...] -2 -1 0. D 06 SS ti PA 45 3- 9- 00 CA 31 ON ve N 04 20 20 0 RE 56 AN [address] D 0 PH EP PA AR HE NE MA N RA CY [...] LL C TA BL ET 00 01 04 0 30 30 ME 14 BE Ac PI 53 -2 -1 0. D 02 SS ti RI 61 3- 2- 00 CA 92 ON ve N 05 20 20 0 RE 50 [address] 5 5 PH EP MG AR HE MA N TA CY A BL ET LL C OY 00 01 03 0 30 30 [...] C 0 MG TB LO 00 01 03 0 30 30 [...] -2 -2 0. D 91 SS ti PA 45 3- 1- 00 CA 72 ON ve N 04 20 20 0 RE 32 AN [address] D 0 PH EP PA AR HE NE MA N RA CY A LS LL TA C BL ET FE 00 01 03 0 60 30 ME 13 BE Ac RR 53 -2 -2 0. D 91 SS ti OU 61 3- 1- 00 CA 72 EN ve S 00 20 20 0 RE 31 JEAN 90 17 17 MA LF 1 PH TT AT AR HE E MA W 32 CY 5 MG LL C TA BL ET 00 01 03 0 30 30 ME 13 BE Ac PI 53 -2 -1 0. D 90 SS ti RI 61 3- 6- 00 CA 99 ON ve N 05 20 20 0 RE 02 [address] 5 5 PH EP MG AR HE MA N TA CY A BL ET LL C LO 00 01 02 0 30 30 ME 13 BE Ac RA 78 -2 -2 0. D 77 SS ti TA 15 3- 0- 00 CA 01 ON ve DI 07 20 20 0 RE 60 NE [address] 1 PH EP 10 AR HE MA N MG CY A TA LL BL C ET 00 01 02 0 30 30 ME 13 BE Ac PI 53 -2 -2 0. D 76 SS ti RI 61 3- 0- 00 CA 57 ON ve N 05 20 20 0 RE 10 [address] 5 5 PH EP MG AR HE MA N TA CY A BL ET LL C FE 00 01 02 0 60 30 ME 13 BE Ac RR 90 -2 -2 0. D 77 SS ti OU 47 3- 0- 00 CA 01 EN ve S 59 20 20 0 RE 54 JEAN 18 17 17 MA LF 0 PH TT AT AR HE E MA W 32 CY 5 MG LL C TA BL ET OY 00 01 02 0 30 30 [...] -2 -2 0. D 77 SS ti PA 45 3- 0- 00 CA 01 ON ve N 04 20 20 0 RE 55 AN [address] D 0 PH EP PA AR HE NE MA N RA CY A LS LL TA C BL ET 00 01 01 0 30 30 ME 13 BE Ac TA 90 -2 -2 0. D 64 SS ti PA 45 3- 3- 00 CA 38 ON ve N 04 20 20 0 RE 17 AN [address] D 0 PH EP PA AR HE NE MA N RA CY [...] C 0 MG TB LO 00 01 01 0 30 30 ME 13 BE Ac RA 78 -2 -2 0. D 64 SS ti TA 15 3- 3- 00 CA 38 ON ve DI 07 20 20 0 RE 26 NE [address] 1 PH EP 10 AR HE MA N MG CY A TA LL BL C ET 00 01 01 0 30 30 [...] 5 MG LL C TA BL ET Encounters Encounter Start End Date Code Location Performer Type Date [facility] [place] INPATIENT 7 7 [facility] - 7 7 [facility] [place] 7 [facility] [place] [facility]PAT[facility] 7 7 [facility] - 7 7 [facility] 7 7 [facility] [place] INPATIENT 7 7 [facility] - 7 7 [facility] [place] [facility] 7 7 [facility] - 7 7 [facility] 7 [facility] [place] [facility] 7 7 [facility] [place] [facility] 7 7 [facility] - 7 7 [facility] [place] [facility] 7 [facility] [place] [facility] [place] [facility] 7 7 [facility] [place] 7 [facility] [place] [facility] 6 6 [facility] [place] 6 [facility] - 9 9 [facility] - 9 9 [facility] - 9 9 [facility]
--- OUTSIDE RECORDS SUMMARY | 2017-07-04 21:39 | External Medical Summary Rpt | CCD ---
Author Author , MUKUL Organization MUKUL Address Unknown Phone [email or web address] Immunization Name Date Rout CVX Reac Dose Comm Prov Is Faci e tion ent ider Refu lity Give sed n Td 03-0 9 999 Hist H149 No H149 (rekha 4-19 oric lt), 97 al Info adso rmat rbed ion - Sour ce Unsp ecif ied
--- OUTSIDE RECORDS SUMMARY | 2017-07-04 21:39 | External Medical Summary Rpt ---
Author Author TIARASEE NewAer, MUKUL NewAer Organization [employer] Address Unknown Phone Unavailable [...]
--- OUTSIDE RECORDS SUMMARY | 2017-07-04 21:39 | External Medical Summary Rpt | CCD ---
Author Author , MUKUL MENJIVARSEE Address Unknown Phone [email or web address] Care Team Providers Care Medical Service Technician Name Role Phone [facility] Unavailable Unavailable ASSOCIATES, [facility] MANUEL MANSFIELD, Unavailable Unavailable [facility] Unavailable Unavailable INC, [facility], [facility]available Unavailable [facility] Unavailable Unavailable [facility], [facility] NELA SINGH, Unavailable Unavailable NELA SINGH [facility] Unavailable Un[facility] COMM[facility]ITY [facility], [facility] Unavailable Unavailable INTERNAL MED, [facility] INTERNAL MED [facility] Unavailable Unavailable INTERNAL MEDI, [facility] INTER[facility], [facility] ELADIO GRISSOM, Unavailable Unavailable ELADIO GRISSOM [facility] Unavailable Unavailable AMBULANCE SE, [facility] AMBULANCE SE [facility], Unavailable Unavailable PLLC, [facility] Unavailable Unavailable SERVICE, [facility] Unavailable Unavailable HEALTH CARE, [facility] Purpose Continuity of Care Document - 08-22-2008 through 2016 Problems Code Diagnosis DOS Provider Status E119 TYPE 2 05-10-2017 [place] DIABETES [facility] MELLITUS HEALTH CARE WITHOUT COMPLICATIO NS E785 HYPERLIPIDE 05-10-2017 [facility] UNSPECIFIED HEALTH CARE G5630 LESION OF 05-10-2017 [facility] NERVE [facility] CARE UNSPECIFIED UPPER LIMB I10 ESSENTIAL 05-10-[address] [facility] HYPERTENSIO HEALTH CARE N K219 GASTRO-ESOP 05-10-2017 [facility] REFLUX [facility] DISEASE HEALTH CARE WITHOUT ESOPHAGITIS H13059 WRIST DROP 05-10-2017 [place] LEFT WRIST [facility] CARE N390 URINARY 05-10-2017 [place] TRACT [facility] INFECTION HEALTH CARE SITE NOT SPECIFIED L51413P UNS 05-10-2017 [facility] LOWER END HEALTH CARE UNS HUMERUS SEQUELA B70934I UNS FX 04-29-2017 [facility] [facility] LT HUMERUS INC SUBSQT FX RTN HLNG D85047R UNS DSPLCD 04-29-2017 [facility] FX SURG MEDICAL NECK LT HUM IMAGING ASS SUB FX RTN HLNG S10088 OTHER LONG 04-14-2017 [facility]RENT ASSOCIATES DRUG THERAPY 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 R69 ILLNESS 03-12-2017 [place] UNSPECIFIED [facility] E109 TYPE 1 03-11-2017 [facility] MELLITUS ASSOCIATES WITHOUT COMPLICATIO NS E875 HYPERKALEMI 03-11-2017 [facility] E878 OTHER D/O 03-05-2017 [facility] ELECTROLYTE ASSOCIATES AND FLUID BALANCE [facility] J31794 PAIN IN 02-24-2017 [facility] RIGHT FOOT [facility] INC B58242 FX HUM FLW 02-24-2017 [facility] INSRT [facility]THO [facility]P IMPL JNT INC PROS/PLAT LT ARM M63103X DSPL FX 02-24-2017 [facility] PROX MEDICAL PHALANX RT IMAGING ASS GREAT TOE SBSQT FX RTN U07652H NONDSPL FX 02-24-2017 [facility] PROX PHALNX PHYSICIANS RT GREAT GROUP TOE SBSQT RTN K42070K DSPL FX 02-24-2017 [facility] PROX PHALNX MEDICAL RT LESSER IMAGING ASS TOES SBSQT FX RTN I75073A NONDSPLC FX 02-24-2017 [facility] PROX PHAL PHYSICIANS RT LESSER GROUP TOES SUB FX RTN J9811 ATELECTASIS 01-04-2017 [facility] D83435 PAIN IN 01-04-2017 [facility] LEFT MEDICAL SHOULDER IMAGING ASS Z65202 PAIN IN 01-04-2017 [facility] LEFT WRIST [facility] IM[facility] ASS R31663 PAIN IN 01-04-2017 [facility] LEFT HIP [facility]ICAL [facility] ASS M542 CERVICALGIA 01-04-2017 [facility] R0789 OTHER CHEST 01-04-2017 [facility] PAIN [facility]ICAL [facility] E5247ZS CONTUSION 01-04-2017 [facility] OF [facility]ICAL INITIAL IMAGING ASS ENCOUNTER M23580G UNS FX 01-04-2017 [facility]IANS, LT HUMERUS PLLC INIT CLOS FRACTURE T57067D UNS DSPLCD 01-04-2017 [facility] FX SURG MEDICAL NECK LT IMAGING ASS HUMERUS INIT CLOS FX F76307J NONDISPLACE 01-04-2017 [facility] UNS FX RT PHYSICIANS, GREAT TOE PLLC INIT CLOS FX [id number] DSPL FX 01-04-2017 [facility] PROX MEDICAL PHALANX RT IMAGING ASS GREAT TOE INIT CLOS FX [id number] DSPL FX 01-04-2017 [facility] PROX PHALNX MEDICAL RT LESSER IMAGING ASS TOES INIT DAYO FX T07 UNSPECIFIED 01-04-2017 [facility] INJURIES AMBULANCE SE [id number] UNSPECIFIED 01-04-2017 [facility] INITIAL AMBULANCE ENCOUNTER SE Z794 HALFWAY 01-04-2017 [facility] CURRENT USE [facility] OF INSULIN INC R202 PARESTHESIA 10-20-2016 [facility] OF SKIN PHYSICIANS GROUP H29933M UNS FX 10-20-2016 [facility] SHAFT HUM MEDICAL LT ARM IMAGING ASS SUBSQT ENC FX RTN HLNG D649 ANEMIA 09-15-2016 [place] [facility] INTERNAL MEDI R05 COUGH 08-22-2016 [facility] SERVICE R296 REPEATED 08-16-2016 [place] [facility] MED 27227 DIAB W/O 11-24-2008 SAMANTHA, COMP TYPE NELA E II/UNS NOT STATED UNCNTRL 2859 UNSPECIFIED 11-24-2008 SAMANTHA, ANEMIA NELA E 5990 URINARY 11-14-2008 SAMANTHA, TRACT NELA E INFECTION SITE NOT SPECIFIED 7241 PAIN IN 11-02-2008 [facility] 7242 LUMBAGO 11-02-2008 [facility] 86714 UNSPECIFIED 10-30-2008 SAMANTHA, NELA E CONSTIPATIO N 36650 ABDOMINAL 10-28-2008 [facility], EMERGENCY UNSPECIFIED SERVICES SITE ASSOCIATES 66633 UNS 09-22-2008 SAMANTHA, GASTRITIS&G NELA E ASTRODUODIT IS W/O MENTION HEMORR 2724 OTHER AND 08-22-2008 SAMANTHA, UNSPECIFIED NELA E HYPERLIPIDE GEORGE 4011 ESSENTIAL 08-22-2008 SAMANTHA, HYPERTENSIO NELA E N, BENIGN 14643 ABDOMINAL 08-22-2008 SAMANTHA, PAIN, NELA E EPIGASTRIC [...] -2 -0 0. D 25 SS ti [place] 45 3- 8- 00 CA 01 ON ve N 04 20 20 0 RE 82 AN [address] D 0 PH EP OH AR HE NE MA N RA CY [...] -2 -0 0. D 08 SS ti [place] 45 3- 9- 00 CA 24 ON ve N 04 20 20 0 RE 13 AN [address] D 0 PH EP [place] AR HE NE MA N RA CY [...] -2 -0 0. D 92 SS ti [place] 45 3- 9- 00 CA 71 ON ve N 04 20 20 0 RE 10 AN [address] D 0 PH EP [place] AR HE NE MA N RA CY [...] -2 -1 0. D 75 SS ti [place] 45 3- 1- 00 CA 13 ON ve N 04 20 20 0 RE 86 AN [address] D 0 PH EP [place] AR HE NE MA N RA CY [...] -2 -1 0. D 57 SS ti [place] 45 3- 3- 00 CA 24 ON ve N 04 20 20 0 RE 95 AN [address] D 0 PH EP [place] AR HE NE MA N RA CY [...] -2 -1 0. D 38 SS ti [place] 45 3- 4- 00 CA 83 ON ve N 04 20 20 0 RE 03 AN [address] D 0 PH EP [place] AR HE NE MA N RA CY [...] -2 -1 0. D 20 SS ti OH 45 3- 7- 00 CA 95 ON ve N 04 20 20 0 RE 65 AN [address] D 0 PH EP [place] AR HE NE MA N RA CY [...] -2 -1 0. D 06 SS ti OH 45 3- 9- 00 CA 31 ON ve N 04 20 20 0 RE 56 AN [address] D 0 PH EP [place] AR HE NE MA N RA CY [...] -2 -2 0. D 91 SS ti [place] 45 3- 1- 00 CA 72 ON ve N 04 20 20 0 RE 32 AN [address] D 0 PH EP [place] AR HE NE MA N RA CY [...] -2 -2 0. D 77 SS ti OH 45 3- 0- 00 CA 01 ON ve N 04 20 20 0 RE 55 AN [address] D 0 PH EP OH AR HE NE MA N RA CY A LS LL TA C BL ET 00 01 01 0 30 30 ME 13 BE Ac TA 90 -2 -2 0. D 64 SS ti OH 45 3- 3- 00 CA 38 ON ve N 04 20 20 0 RE 17 AN [address] D 0 PH EP [place] AR HE NE MA N RA CY [...] End Date Code Location Performer Type Date [facility] [place] INPATIENT 7 7 [facility] - 7 7 [facility] [place] [facility] [place] [facility] 7 7 [facility] - 7 7 [facility] OTHER 7 7 [facility] [place] [facility] 7 7 [facility] - 7 7 [facility] [place] [facility] 7 7 [facility] - 7 7 [facility] 7 7 [facility] [place] [facility] 7 7 [facility] [place]PAT[facility] 7 7 [facility] - 7 7 [facility] [place] [facility] 7 7 [facility] [place] [facility]PAT[facility] 7 7 [facility] [place] [facility] 7 7 [facility] [place] [facility]PAT[facility] 7 7 [facility] [place] INPATIENT 6 6 [facility]PAT[facility] 6 6 [facility] - 9 9 [facility] - 9 9 [facility] - 9 9 [facility]
--- NOTE | 2017-07-04 21:50 | Emergency Room Report ---
History of Present Illness Time Seen by [id number] Presenting Problem in Triage Pt arrived:Ambulance Stretcher Presenting Problem:C/O LETHERGY FOR A COUPLE OF DAYS PER [facility] HOME STAFF.NO APPETITE AND NOT EATING. C/O MAUSEA AND SOME BELLY PAIN PER PATIENT. HAD STAT LABS DRAWN AT ALF. HAS CONGESTION NOTED AND HYPOXIA Onset of symptoms date/time:/ or onset unknown for:MEDICAL HX UNKNOWN Treatment Prior to Arrival: EMS TRANSPORT DEVELOPMENT ENG Provided by:EMT Sepsis Risk Assessment: Temp: 99.3 B/P: 123/50 MAP: 74 Pulse: 68 Resp: 20 Recent fever? N Clinical Suspician of Infection? Y Mental Status: 1 - Regular (Normal Baseline) Sepsis Risk:Low Sepsis Risk Have you (or family members/close friends) recently traveled outside the [place]? N If Yes, where/when: Have you had exposure to infectious disease within the past month? N TB? Other? Specify: Comment The patient and brought in by ambulance from a [place] [facility] facility with reports of malaise for 2 days. Patient reports that she feels tired but denies any other specific complaints. She is noted to have a cough and says she has had this for a couple of weeks. She says she has not been told anything about having a fever. She says that she has a headache, denies any other pain, although apparently told the nurse she was having some belly pain. She denies this to me. She says she has had some vomiting, but no diarrhea. She reportedly had some blood work done today at the [place] and had a leukocytosis, elevated BUN and Cr. She denies shortness of breath. ALLERGIES Coded Allergies: Sulfa (Sulfonamide Antibiotics) (I-RASH 05/23/16) Home Medications Active Scripts Loratadine (Claritin 10MG Tab) 10 MG PO QAM #90 TAB Ref 1 Prov: 11/22/15 Reported Medications METFORMIN HCL (Metformin 1000MG) 1,000 MG PO BID Esomeprazole Magnesium (Nexium 40MG Cap) 40 MG PO DAILY Oyster Shell (Oscal 500MG Tablet) 500 MG PO DAILY MULTIVIT,THER IRON,CA,FA & MIN (Sm Therapeutic M Tablet) 1 TAB PO DAILY NEBIVOLOL HCL (Bystolic) 20 MG PO DAILY #30 TAB ASPIRIN (Aspirin 325MG) 325 MG PO DAILY Pioglitazone HCl (Actos) 45 MG PO DAILY Ferrous Sulfate (Ferrous Sulfate 325MG) 325 MG PO BID Diazepam (Valium 5MG) 5 MG PO Q6HP PRN ANXIETY HYDROCODONE/ACETAMINOPHEN (Lortab 5-325 MG Tablet) 1 TAB PO Q4HP PRN PAIN Lactulose (Lactulose) 10 GM PO DAILY PRN CONSTIPATION POLYETHYLENE GLYCOL (Miralax) 17 GM PO DAILY PRN CONSTIPATIONI Rosuvastatin Calcium (Crestor) 20 MG PO QHS AMLODIPINE BESYLATE/BENAZEPRIL (Amlodipine-Benazepril 10-20 MG) 10 TAB PO DAILY INSULIN NPL/INSULIN LISPRO (Humalog Mix 75-25 Kwikpen) 44 UNITS SC DAILY INSULIN NPL/INSULIN LISPRO (Humalog Mix 75-25 Kwikpen) 40 UNITS SC DAILY 5PM Benazepril Hcl (Lotensin 20MG Tab) 20 MG PO DIALY Acetaminophen (Acetaminophen Extra Strength) 500 MG PO Q6HP PRN PAIN Bisacodyl (Bisacodyl Supp) 10 MG GA DAILYP PRN constipation Ondansetron (Zofran 4MG Odt) 4 MG PO Q6HP PRN NAUSEA AND VOMITING Escitalopram Oxalate (Escitalopram 20MG) 5 MG PO DAILY Furosemide (Lasix) 10 MG PO DAILY Gabapentin (Gabapentin 600MG) 600 MG PO QHS #30 History Medical History General CAD? No Angina: No [place]: No Hypertension? Yes Hyperlipidemia? Yes CHF? No DVT? No PE? No COPD? No Asthma? No Anemia? No GERD? Yes Gastric ulcers? No GI Bleed? No Hernia? No Thyroid Problems? No Hypothyroidism? No CVA? No Seizures? 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 Yes Renal Insuffiency? No End Stage Renal Disease? No UTI? Yes Stones? No BPH? No GB Disease: Yes Nephritic Syndrome? No Asplenia? No Hepatitis? No Sickle Cell Disease? No Arthritis? No Migraines? No Cataracts? Yes Glaucoma? No MRSA? No HIV? No TB? No Anxiety? No Depression? No Cancer? No Immunization Hx DT/Tetanus 5-10 Years Ago Flu 2015-17FSN Pneumonia Refuses Surgical Hx Previous Surgery?Y Tubal Ligation HYSTERECTOMY APPY LORAINE CATARACTS GallbladdER LEFT HIP REPAIR CARPAL TUNNEL R HAND LEFT ORIF ARM Family History Family Hx Diabetes No CAD Yes Hypertension Yes Hyperlipidemia No Cancer Yes TB No Social History Smoking Hx Smoker: Former Smoker Tobacco: No Alcohol Alcohol: No Review of Systems All Other Systems Reviewed and Negative Constitutional denies fever, malaise Respiratory cough, denies shortness of breath Cardiovascular denies chest pain Gastrointestinal denies abdominal pain, denies diarrhea, vomiting Psychiatric/Neurological headache Physical Exam Vital Signs Vital Signs Date Time Temp Pulse Resp B/P Pulse O2 O2 Flow FiO2 Ox Delivery Rate 07/046 99.3 62 20 107/46 97 2 07/04 2255 62 20 107/46 97 2 07/04 2217 60 20 102/57 98 07/049 99.3 68 20 123/50 66 General Appearance no apparent distress Eye Exam - bilateral eye normal exam, bilateral eye PERRL, bilateral eye EOMI Ear, Nose, Throat hearing grossly normal, normal ENT inspection Neck normal inspection, non-tender, supple, full range of motion Respiratory Status Yes: trachea midline, chest symmetrical, non productive cough. No: respiratory distress. Lung Sounds bilateral: normal breath sounds, lungs clear. Cardiovascular normal exam, regular rate/rhythm, no peripheral edema, no gallop, no JVD, no murmur, no rub, normal peripheral pulses Peripheral Pulses Pulses normal Yes Gastrointestinal normal bowel sounds, normal exam, non tender, soft, no organomegaly, hernia (large, ventral infraumbilical) Back normal inspection Extremities non-tender, normal inspection Neurologic alert, shellfish manager II-XII nml as tested, no motor/sensory deficits Mental status normal mood/affect Skin intact, normal color, warm/dry Lymphatic no adenopathy Medical Decision Making LABS/Meds/Orders Pt receiving controlled substance in ED? No Results/Orders Laboratory Tests 07/04/170: Urine Color YELLOW, Urine Appearance CLOUDY, Urine pH 5.0, Ur Specific [place] > = 1.030, Urine Protein 1+ H, Urine Ketones TRACE H, Urine Blood 1+ H, Urine Nitrate NEGATIVE, Urine Bilirubin NEGATIVE, Urine Urobilinogen 0.2, Ur Leukocyte Esterase 2+ H, Urine RBC 10-20, Urine WBC TNTC, Urine Glucose NEGATIVE 07/04/172139: Lactic Acid 2.0 07/04/172139: Sodium 134 L, Potassium 6.6 *H, Chloride 97 L, Carbon Dioxide 28, BUN 43 H, Creatinine 3.6 H, Estimated Creat Clear 17 L, Estimated GFR (MDRD) 12 *L, Glucose 142 H, Calcium 9.0, Total Bilirubin 0.7, AST 42 H, ALT 60, Alkaline Phosphatase 57, Troponin I 0.51 H, Total Protein 6.8, Albumin 3.4, Globulin 3.4 H, Albumin/Globulin Ratio 1.0 L, WBC 18.0 H, RBC 3.53 L, Hgb 9.9 L, Hct 32.5 L, MCV 92.0, RDW 16.0, Plt Count 153, MPV 11.0 H, Gran % 85.9 H, Gran # 15.4 H, Total Counted 100, Lymphocytes % 10.1, Monocytes % 3.8, Eosinophils % 0.1, Basophils % 0.2, Neutrophils 78 H, Band Neutrophils 11 H, Lymphocytes ( Manual) 8 L, Lymphocytes # 1.8, Monocytes (Manual) 3, Monocytes # 0.7, Eosinophils # 0.0, Basophils # 0.0, Platelet Estimate NORMAL, Hypochromasia 3+, Anisocytosis 1+, Rouleaux SL., PUBS MCHC 30.6 L, MCH 28.2 Current Medication Orders Sig/Dahiana Start time Last Medication Dose Route Stop Time Status Admin Gabapentin 600 MG QHS 07/05 2100 UNV PO Aspirin 325 MG DAILY 07/05 09 UNV PO Cefepime HCl 1 GM DAILY 07/05 09 UNV Sodium Chloride 50 ML IV Ferrous Sulfate 325 MG BID 07/05 09 UNV PO Diagnostic Test (Pha) 1 EACH W/MEALS&HS 07/05 07 UNV FS 09/03 0659 Insulin Human [rDNA See Dose W/MEALS&HS 07/05 700 UNV origin] Insts (1) SC Diazepam 5 MG Q6HP PRN 07/04 2315 UNV PO Hydrocodone Bitart/ 1 TAB Q4HP PRN 07/04 2315 UNV Acetaminophen PO Levofloxacin/Dextrose 100 ML Q48H 07/04 2315 UNVr IV Acetaminophen 650 MG Q4HP PRN 07/04 2300 UNV PO Influenza Virus 0.5 ML PRN PRN 07/04 2300 UNV Vaccine Quadrival IM Miscellaneous 1 EACH CONSULT PHARMACY 07/04 2300 UNV Information * 07/05 1100 Nicotine 21 MG DAILYP PRN 07/04 2300 UNV TD Sodium Chloride 1,000 ML .Q10H 07/04 2300 UNV IV Sodium Chloride 10 ML PRN PRN 07/04 2300 UNV IV Levofloxacin/Dextrose 150 ML .STK-MED ONE 07/04 2256 DC IV Cefepime HCl 0 .STK-MED ONE 07/04 2246 DC IV Levofloxacin/Dextrose 0 .STK-MED ONE 07/04 2246 DC IV Sodium Chloride 100 ML .STK-MED ONE 07/04 2246 DC IV Albuterol 2.5 MG ONCE ONE 07/04 2245 DC 07/04 INH 07/04 Albuterol 0 .STK-MED ONE 07/04 2245 DC INH Cefepime HCl 2 GM ONCE ONE 07/04 2245 DC 07/04 Sodium Chloride 100 ML IV 07/04 2314 2250 Dextrose 50 ML ONCE ONE 07/04 2245 DC 07/04 IVP 07/04 Insulin Human Regular 10 UNITS ONCE ONE 07/04 2245 DC 07/04 IVP 07/04 2246 224 Levofloxacin/Dextrose 150 ML ONCE ONE 07/04 2245 r 07/04 IV 07/05 0014 2305 Miscellaneous 1 EACH CONSULT PHARMACY 07/04 2245 AC Information * 07/05 1040 Sodium Bicarbonate 50 ML ONCE ONE 07/04 2245 DC 07/04 IV 07/04 Sodium Polystyrene 15 GM ONCE ONE 07/04 2245 DC 07/04 Sulfonate PO 07/04 Insulin Human Regular 0 .STK-MED ONE 07/04 2244 DC .ROUTE Dextrose 0 .STK-MED ONE 07/04 2243 DC .ROUTE Sodium Bicarbonate 0 .STK-MED ONE 07/04 2243 DC .ROUTE Sodium Polystyrene 0 .STK-MED ONE 07/04 2243 DC Sulfonate .ROUTE Sodium Chloride 1,000 ML .STK-MED ONE 07/04 2232 DC IV Sodium Chloride 1,000 ML .Q1H1M 07/04 2230 DC 07/04 IV 07/04 Sodium Chloride 10 ML PRN PRN 07/04 2145 AC IV 07/05 2145 Dose Instructions: (1)Insulin Human [rDNA origin]: SEE ADMIN CRITERIA FOR MEDIUM INTENSITY Orders Procedure Date/time Status DIET-1999 CALORIE ADA 07/05 B Active CBC WITH AUTO DIFF 07/05 06 Active BASIC METABOLIC PROFILE 07/05 600 Active PHARMACIST CONSULT 07/04 2303 Active Decision to admit 07/04 2240 Active RT REQUEST ALBUTEROL NEB 07/04 2235 Active CULTURE, URINE 07/04 2200 Active ELECTROCARDIOGRAM REQUEST 07/04 2146 Active CHEST-PORTABLE 07/04 2146 Active IV SALINE LOCK 07/04 2146 Active URINARY CATHETER INSERT 07/04 2146 Active CULTURE, SPUTUM 07/04 2146 Active CULTURE, BLOOD 07/04 2146 Active URINALYSIS/COMPLETE 07/04 2146 Complete TROPONIN I 07/04 2146 Complete LACTIC ACID 07/04 2146 Complete CBC WITH AUTO DIFF 07/04 2146 Complete CHEM 12 PROFILE 07/04 2146 Complete DIFFERENTIAL-WBC 07/04 2140 Complete ADMIT PATIENT 07/04 UNK Active PULSE OXIMETRY REQUEST 07/04 UNK Active OXYGEN REQUEST 07/04 UNK Active VITAL SIGNS 07/04 UNK Active PROFESSOR OF ART 07/04 UNK Active POM NURSE ELYSSA HOSE ORDER 07/04 UNK Active IV SALINE LOCK 07/04 UNK Active RECORD I & O 07/04 UNK Active CODE STATUS 07/04 UNK Active PATIENT ACTIVITY ORDER 07/04 UNK Active CM/EKG CM/EKG Comments EKG interpreted by Tyron Eden MD: Rhythm: sinus Rate: 61 [place]: LEFT Ectopy: none Conduction: First-degree AV block ST Segment Changes: none T Wave Changes: none Q Waves: none No evidence of acute ischemia or injury Low voltage QRS XRAY/CT/US XRAY/CT/US XRAY chest Comment X-ray interpreted by Tyron Eden M.D.: right infiltrate. left air-space disease: atelect vs scar vs infilt. left prox humerus fx. Progress - 10:40 PM: I have discussed the case with Dr. Rao for Dr. Grande who agrees to admit the patient to the hospital. We discussed the patient's clinical information, including history, exam, laboratory and radiology results and ED course. Per hospital procedure, I will write temporary bridge inpatient orders on the patient. Specific orders requested by the admitting physician: Normal saline at 100 mL per hour. Recheck chemistry profile in the morning. Triple antibiotic coverage for healthcare associated pneumonia, Levaquin, vancomycin, cefepime. Departure Departure Disposition Still a Patient Clinical Impression Primary Impression: Healthcare-associated pneumonia Secondary Impressions: Acute renal failure Qualifiers: Acute renal failure type: unspecified Qualified Code: N17.9 - Acute kidney failure, unspecified Hyperkalemia Hypoxia UTI (urinary tract infection) Qualifiers: Urinary tract infection type: site unspecified Hematuria presence: with hematuria Qualified Code: N39.0 - Urinary tract infection, site not specified Condition STABLE Referrals Charles Grande MD (Family) ED Critical Care Critical Care Yes Time spent 30-74 min Vital system(s) involved: Metabolic Failure, Renal Failure I was present at bedside for Coordinating pt's care, Interpreting EKGs/Strips , During my initial exam, Reviewing lab results, Reviewing old records, Discussing pt condition, Examining radiographs at 0010
[2017-07-04] MEDS ORDERED: BISAC-EVAC10 MG PR (21:58)
[2017-07-04] MEDS ORDERED: ZOFRAN ODT4 MG PO (22:02)
[2017-07-04] MEDS ORDERED: ESCITALOPRAM 2020 MG PO (22:05)
[2017-07-04] MEDS ORDERED: LASIX20 MG PO (22:07)
[2017-07-04 22:08] LABS: LYMPH # 1.8 K/mm3 (0.7-4.5); LYMPH % 10.1 % (10-50.0)
[2017-07-04 22:18] LABS: HEMOGLOBIN 9.9 g/dL (12.2-16.2)
--- OUTSIDE RECORDS SUMMARY | 2017-07-04 22:46 | External Medical Summary Rpt | CCD ---
Author Author , MUKUL MENJIVARSEE Address Unknown Phone [email or web address] Care Team Providers Care Supervisor Shipfitters Name Role Phone [facility] Unavailable Unavailable ASSOCIATES, [facility] MANUEL MANSFIELD, Unavailable Unavailable MANUEL MANSFIELD [facility] Unavailable Unavailable INC, [facility], Unavailable Unavailable [facility] Unavailable Unavailable [facility], [facility] NELA SINGH, Unavailable Unavailable NELA SINGH [facility] Unavailable Unavailable COMM[facility]ITY [facility], [facility] Unavailable Unavailable [facility], [facility] Unavailable Unavailable [facility], [facility] Un[facility] Unavailable [facility], [facility] ELADIO GRISSOM, Unavailable Unavailable ELADIO GRISSOM [facility] Unavailable Unavailable AMBULANCE SE, [facility], Unavailable Unavailable PLLC, [facility] Unavailable Unavailable SERVICE, [facility] Unavailable Unavailable HEALTH CARE, [facility] Purpose Continuity of Care Document - 08-22-2008 through 2016 Problems Code Diagnosis DOS Provider Status E119 TYPE 2 05-10-2017 [facility] DI[facility]ETES [facility] ME[facility]US [facility] WITHOUT COMPLICATIO NS E785 HYPERLIPIDE 05-10-2017 [facility] UNSPECIFIED HEALTH CARE G5630 LESION OF 05-10-2017 [facility] RADIAL [facility] NERVE [facility] UNSPECIFIED UPPER LIMB I10 ESSENTIAL 05-10-2017 [facility] HYPERTENSIO HEALTH CARE N K219 GASTRO-ESOP 05-10-2017 [facility] REFLUX [facility] DISEASE HEALTH CARE WITHOUT ESOPHAGITIS N29167 WRIST DROP 05-10-2017 [facility] LEFT WRIST [facility] CARE N390 URINARY 05-10-2017 [facility] TRACT [facility] INFECTION HEALTH CARE SITE NOT SPECIFIED [id number] UNS 05-10-2017 [facility] UNS HUMERUS SEQUELA [id number] UNS FX 04-29-2017 [facility] HUMERUS INC SUBSQT FX RTN HLNG [id number] UNS DSPLCD 04-29-2017 [place] [facility] SURG MEDICAL NECK LT HUM IMAGING ASS SUB FX RTN HLNG [id number] OTHER LONG 04-14-2017 [facility] CURRENT ASSOCIATES DRUG THERAPY 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 [facility] SINGLE PHYSICIANS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 R69 ILLNESS 03-12-2017 [facility]NSPECIFIED [facility] E109 TYPE 1 03-11-2017 [facility] DI[facility] HEALTH MELLITUS ASSOCIATES WITHOUT COMPLICATIO NS E875 HYPERKALEMI 03-11-2017 [facility] A [facility] E878 OTHER D/O 03-05-2017 [facility] ELECTROLYTE ASSOCIATES AND FLUID BALANCE NEC [id number] PAIN IN 02-24-2017 [facility] RIGHT [facility]OT [facility] [id number] FX HUM FLW 02-24-2017 [facility] INSRT ORTHO [facility]P IMPL JNT INC PROS/PLAT LT ARM [id number] DSPL FX 02-24-2017 [place] PROX [facility]ICAL PHALANX RT IMAGING ASS GREAT TOE SBSQT FX RTN [id number] NONDSPL FX 02-24-2017 [facility] PROX PHALNX PHYSICIANS RT GREAT GROUP TOE SBSQT RTN [id number] DSPL FX 02-24-2017 [place] PROX PHALNX MEDICAL RT LESSER IMAGING ASS TOES SBSQT FX RTN [id number] NONDSPLC FX 02-24-2017 [facility] PROX PHAL PHYSICIANS RT LESSER GROUP TOES SUB FX RTN J9811 ATELECTASIS 01-04-2017 [facility] M06922 PAIN IN 01-04-2017 [place] LEFT MEDICAL SHOULDER IMAGING ASS U80724 PAIN IN 01-04-2017 [place] LEFT WRIST [facility]ICAL IMAGING ASS P41547 PAIN IN 01-04-2017 [place] LEFT HIP MEDICAL IM[facility]ING ASS M542 CERVICALGIA 01-04-2017 [facility] R0789 OTHER CHEST 01-04-2017 [facility] PAIN [facility]ICAL [facility] [id number] CONTUSION 01-04-2017 [place] OF [facility] INITIAL IMAGING ASS ENCOUNTER [id number] UNS FX 01-04-2017 [facility] END [facility], LT HUMERUS PLLC INIT CLOS FRACTURE [id number] UNS DSPLCD 01-04-2017 [place] FX SURG MEDICAL NECK LT IMAGING ASS HUMERUS INIT CLOS FX [id number] NONDISPLACE 01-04-2017 [facility] UNS FX RT PHYSICIANS, GREAT TOE PLLC INIT CLOS FX [id number] DSPL FX 01-04-2017 [place] PROX MEDICAL PHALANX RT IMAGING ASS GREAT TOE INIT CLOS FX [id number] DSPL FX 01-04-2017 [place] PROX PHALNX MEDICAL RT LESSER IMAGING ASS TOES INIT DAYO FX T07 UNSPECIFIED 01-04-2017 [facility] INJURIES AMBULANCE SE [id number] UNSPECIFIED 01-04-2017 [facility] INITIAL AMBULANCE ENCOUNTER SE Z794 GROUP HOME 01-04-2017 [facility] CURRENT USE [facility] OF INSULIN INC R202 PARESTHESIA 10-20-2016 [facility] OF SKIN PHYSICIANS GROUP [id number] UNS FX 10-20-2016 [place] SHAFT HUM MEDICAL LT ARM IMAGING ASS SUBSQT ENC FX RTN HLNG D649 ANEMIA 09-15-2016 [facility] INTERNAL MEDI R05 COUGH 08-22-2016 [facility] R296 REPEATED 08-16-2016 [facility] MED 21865 DIAB W/O 11-24-2008 SAMANTHA, COMP TYPE NELA E II/UNS NOT STATED UNCNTRL 2859 UNSPECIFIED 11-24-2008 SAMANTHA, ANEMIA NELA E 5990 URINARY 11-14-2008 SAMANTHA, TRACT NELA E INFECTION SITE NOT SPECIFIED 7241 PAIN IN 11-02-2008 [facility] 7242 LUMBAGO 11-02-2008 [facility] 50373 UNSPECIFIED 10-30-2008 SAMANTHA, NLEA E CONSTIPATIO N 48175 ABDOMINAL 10-28-2008 [place] [facility] UNSPECIFIED SERVICES SITE ASSOCIATES 24829 UNS 09-22-2008 SAMANTHA, GASTRITIS&G NELA E ASTRODUODIT IS W/O MENTION HEMORR 2724 OTHER AND 08-22-2008 SAMANTHA, UNSPECIFIED NELA E HYPERLIPIDE GEORGE 4011 ESSENTIAL 08-22-2008 SAMANTHA, HYPERTENSIO NELA E N, BENIGN 50879 ABDOMINAL 08-22-2008 SAMANTHA, PAIN, NELA E EPIGASTRIC [...] -2 -0 0. D 25 SS ti HI 45 3- 8- 00 CA 01 ON ve N 04 20 20 0 RE 82 AN [address] D 0 PH EP HI AR HE NE MA N RA CY [...] -2 -0 0. D 08 SS ti HI 45 3- 9- 00 CA 24 ON ve N 04 20 20 0 RE 13 AN [address] D 0 PH EP HI AR HE NE MA N RA CY [...] -2 -0 0. D 92 SS ti HI 45 3- 9- 00 CA 71 ON ve N 04 20 20 0 RE 10 AN [address] D 0 PH EP HI AR HE NE MA N RA CY [...] -2 -1 0. D 75 SS ti HI 45 3- 1- 00 CA 13 ON ve N 04 20 20 0 RE 86 AN [address] D 0 PH EP HI AR HE NE MA N RA CY [...] -2 -1 0. D 57 SS ti HI 45 3- 3- 00 CA 24 ON ve N 04 20 20 0 RE 95 AN [address] D 0 PH EP HI AR HE NE MA N RA CY [...] -2 -1 0. D 38 SS ti HI 45 3- 4- 00 CA 83 ON ve N 04 20 20 0 RE 03 AN [address] D 0 PH EP HI AR HE NE MA N RA CY [...] -2 -1 0. D 20 SS ti HI 45 3- 7- 00 CA 95 ON ve N 04 20 20 0 RE 65 AN [address] D 0 PH EP HI AR HE NE MA N RA CY [...] -2 -1 0. D 06 SS ti HI 45 3- 9- 00 CA 31 ON ve N 04 20 20 0 RE 56 AN [address] D 0 PH EP HI AR HE NE MA N RA CY [...] -2 -2 0. D 91 SS ti HI 45 3- 1- 00 CA 72 ON ve N 04 20 20 0 RE 32 AN [address] D 0 PH EP HI AR HE NE MA N RA CY [...] -2 -2 0. D 77 SS ti HI 45 3- 0- 00 CA 01 ON ve N 04 20 20 0 RE 55 AN [address] D 0 PH EP HI AR HE NE MA N RA CY A LS LL TA C BL ET 00 01 01 0 30 30 ME 13 BE Ac TA 90 -2 -2 0. D 64 SS ti HI 45 3- 3- 00 CA 38 ON ve N 04 20 20 0 RE 17 AN [address] D 0 PH EP HI AR HE NE MA N RA CY [...] 5 MG LL C TA BL ET Results Labs Lab Lab Date Result Refere Interp Status Commen Order Detail nces retati t Range on Blood lactic acid measurement (moles/vol (07-04-2017 21:40) Blood 07-04-2 = 2.0 0.4-2.0 complet lactic 017 mmol/L ed acid 21:40 measure ment (moles/ vol Comprehensive metabolic panel (07-04-2017 21:40) Serum --2 = 3.4 3.4-5.0 complet or 017 gm/dL ed plasma 21:40 albumin measure ment (mas Serum 07-04-2 = 1.0 1.1-1.8 complet or 017 ed plasma 21:40 albumin /globul in mass ra Serum 07-04- = 57 46-116 complet or 017 U/L ed plasma 21:40 alkalin e phospha tase mega Serum 07-04-2 = 0.7 0.2-1.0 complet or 017 mg/dL ed plasma 21:40 total bilirub in measure m Serum = 43 7-18 complet or 017 mg/dL ed plasma 21:40 urea nitroge n measure men Serum 07-04-2 = 9.0 8.5-10. complet or 017 mg/dL 1 ed plasma 21:40 calcium measure ment (mas Serum = 97 98-107 complet or 017 mmoL/L ed plasma 21:40 chlorid e measure ment (mo Carbon = 28 21.0-32 complet dioxide 017 mmoL/L .0 ed 21:40 measure ment Serum = 3.6 0.55-1. complet or 017 mg/dL 02 ed plasma 21:40 creatin ine measure ment ( Estimat = 17 50-200 complet ion of 017 ML/MIN ed creatin 21:40 ine renal clearan ce Estimat = 12 59- complet ed 017 ML/MIN ed glomeru 21:40 lar filtrat ion rate (GF Comment: REFERENCE RANGE: >60 ML/MIN/1.73 SQUARE METERS Comment: If this patient is -[place] Citizen, then multiply the Comment: result by 1.210. Serum 2 = 3.4 1.3-3.2 complet globuli 017 gm/dL ed n 21:40 measure ment (mass/v olume) Serum = 142 74-106 complet or 017 mg/dL ed plasma 21:40 glucose measure ment (mas Serum = 6.6 3.5-5.1 complet potassi 017 mmoL/L ed um 21:40 measure ment Comment: CRITICAL RESULTS Comment: RESULTS CALLED TO: JOB CHIANG POST OFFICE MANAGER Comment: 07/04/172230 Antwon Gomez Serum = 134 136-145 complet sodium 017 mmoL/L ed measure 21:40 ment Serum = 42 15-37 complet or 017 U/L ed plasma 21:40 asparta te aminotr ansfera ALT = 60 12-78 complet (SGPT) 017 U/L ed ser/emlissa 21:40 s Protein = 6.8 6.4-8.2 complet total 017 gm/dL ed ser/melissa 21:40 s Serum or plasma troponin i.cardiac measu (07-04-2017 21:40) Serum = 0.51 0.00-0. complet or 017 ng/mL 06 ed plasma 21:40 troponi n i.cardi ac measu Comment: CRITICAL RESULTS Comment: RESULTS CALLED TO: JOB CHIANG POST OFFICE MANAGER Comment: 07/04/172231 Antwon Gomez Comment: > 0.5 IS CONSISTENT WITH MYOCARDIAL ISCHEMIA OR INFARCTION Encounters Encounter Start End Date Code Location Performer Type Date [facility] IN[facility]IENT 7 7 [facility] 7 7 [facility] [place] [facility] 7 [facility] [place] [facility] 7 [facility] [place] [facility] [place] [facility] 7 7 [facility] 7 7 [facility] [place] [facility] 7 7 [facility] [place] [facility] 7 7 [facility] [place] [facility] [place] [facility] 7 [facility] [place] [facility] 6 6 [facility] [place] [facility] 6 6 [facility] - 9 9 [facility] - 9 9 [facility]
--- OUTSIDE RECORDS SUMMARY | 2017-07-04 22:46 | External Medical Summary Rpt | CCD ---
Author Author , MUKUL MENJIVARSEE Address Unknown Phone [email or web address] Care Team Providers Care Tax Appraiser Name Role Phone [facility] Unavailable Unavailable ASSOC[facility]ATES, [email or web address] MANUEL MANSFIELD, Unavailable Unavailable MANUEL MANSFIELD [facility] Unavailable Unavailable INC, [facility] Unavailable Unavailable [facility] Unavailable Unavailable [facility]ING [facility], [facility] NELA SINGH, Unavailable Unavailable NELA SINGH [facility] Unavailable Unavailable COMMUNITY ACT, [facility] Unavailable Unavailable INTERNAL MED, [facility] INTERNAL MED [facility] Unavailable Unavailable INTERNAL MEDI, [facility], [facility] ELADIO GRISSOM, Unavailable Unavailable ELADIO GRISSOM [facility] Unavailable Unavailable AMBULANCE SE, [facility] AMBULANCE SE [facility], Unavailable Unavailable PLLC, [facility] Unavailable Unavailable SERVICE, [facility] Unavailable Unavailable HEALTH CARE, [facility] Purpose Continuity of Care Document - 08-22-2008 through 2016 Problems Code Diagnosis DOS Provider Status E119 TYPE 2 05-10-2017 [place] DIABETES [facility] MELLITUS HEALTH CARE WITHOUT COMPLICATIO NS E785 HYPERLIPIDE 05-10-2017 [facility] UNSPECIFIED HEALTH CARE G5630 LESION OF 05-10-2017 [place] RADIAL [facility] NERVE HEALTH CARE UNSPECIFIED UPPER LIMB I10 ESSENTIAL 05-10-2017 [facility] HYPERTENSIO HEALTH CARE N K219 GASTRO-ESOP 05-10-2017 [facility] REFLUX [facility] DISEASE HEALTH CARE WITHOUT ESOPHAGITIS K14269 WRIST DROP 05-10-2017 [place] LEFT WRIST [facility] CARE N390 URINARY 05-10-2017 [place] TRACT [facility] INFECTION HEALTH CARE SITE NOT SPECIFIED [id number] UNS 05-10-2017 [facility] LOWER END [facility] CARE UNS HUMERUS SEQUELA [id number] UNS FX 04-29-2017 [place] [facility] LT HUMERUS INC SUBSQT FX RTN HLNG [id number] UNS DSPLCD 04-29-2017 [place] FX SURG MEDICAL NECK LT HUM IMAGING ASS SUB FX RTN HLNG [id number] OTHER LONG 04-14-2017 [facility] CURRENT ASSOCIATES DRUG THERAPY 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 [facility]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 R69 ILLNESS 03-12-2017 [place] UNSPECIFIED [facility] E109 TYPE 1 03-11-2017 [facility] MELLITUS ASSOCIATES WITHOUT COMPLICATIO NS E875 HYPERKALEMI 03-11-2017 [facility] E878 OTHER D/O 03-05-2017 [facility] ELECTROLYTE ASSOCIATES AND FLUID BALANCE NEC H20068 PAIN IN 02-24-2017 [facility] S16335 FX HUM FLW 02-24-2017 [facility]O [facility] IMPL JNT INC PROS/PLAT LT ARM [id number] DSPL FX 02-24-2017 [place] PROX MEDICAL PHALANX RT IMAGING ASS GREAT TOE SBSQT FX RTN [id number] NONDSPL FX 02-24-2017 [facility] PROX PHALNX PHYSICIANS RT GREAT GROUP TOE SBSQT RTN [id number] DSPL FX 02-24-2017 [place] PROX PHALNX MEDICAL RT LESSER IMAGING ASS TOES SBSQT FX RTN [id number] NONDSPLC FX 02-24-2017 [facility] PROX PHAL PHYSICIANS RT LESSER GROUP TOES SUB FX RTN J9811 ATELECTASIS 01-04-2017 [facility] B79748 PAIN IN 01-04-2017 [place] LEFT MEDICAL SHOULDER IMAGING ASS H39681 PAIN IN 01-04-2017 [place] LEFT WRIST MEDICAL IMAGING ASS S79957 PAIN IN 01-04-2017 [place] LEFT HIP MEDICAL IMAGING ASS M542 CERVICALGIA 01-04-2017 [facility] R0789 OTHER CHEST 01-04-2017 [place] PAIN MEDICAL IMAGING ASS [id number] CONTUSION 01-04-2017 [place] OF [facility] MEDICAL INITIAL IMAGING ASS ENCOUNTER J13434O UNS FX 01-04-2017 [facility], LT HUMERUS PLLC INIT CLOS FRACTURE Z50540F UNS DSPLCD 01-04-2017 [place] FX SURG MEDICAL NECK LT IMAGING ASS HUMERUS INIT CLOS FX [id number] NONDISPLACE 01-04-2017 [facility] UNS FX RT PHYSICIANS, GREAT TOE PLLC INIT CLOS FX [id number] DSPL FX 01-04-2017 [place] PROX MEDICAL PHALANX RT IMAGING ASS GREAT TOE INIT CLOS FX [id number] DSPL FX 01-04-2017 [place] PROX PHALNX MEDICAL RT LESSER IMAGING ASS TOES INIT DAYO FX T07 UNSPECIFIED 01-04-2017 [facility] INJURIES AMBULANCE SE P73BLZY UNSPECIFIED 01-04-2017 [facility] INITIAL AMBULANCE ENCOUNTER SE Z794 PENITENTIARY 01-04-2017 [facility] CURRENT USE [facility] OF INSULIN INC R202 PARESTHESIA 10-20-2016 [facility] SKIN PHYSICIANS GROUP [id number] UNS FX 10-20-2016 [place] SHAFT HUM MEDICAL LT ARM IMAGING ASS SUBSQT ENC FX RTN HLNG D649 ANEMIA 09-15-2016 [facility] INTERNAL MEDI R05 COUGH 08-22-2016 [facility] SERV[facility] R296 REPEATED 08-16-2016 [place] MED 35366 DIAB W/O 11-24-2008 SAMANTHA, COMP TYPE NELA E II/UNS NOT STATED UNCNTRL 2859 UNSPECIFIED 11-24-2008 SAMANTHA, ANEMIA NELA E 5990 URINARY 11-14-2008 SAMANTHA, TRACT NELA E INFECTION SITE NOT SPECIFIED 7241 PAIN IN 11-02-2008 [place] [facility] 7242 LUMBAGO 11-02-2008 [facility] 52767 UNSPECIFIED 10-30-2008 SAMANTHA, NELA E CONSTIPATIO N 37372 ABDOMINAL 10-28-2008 [place] [facility], EMERGENCY UNSPECIFIED SERVICES SITE ASSOCIATES 59275 UNS 09-22-2008 SAMANTHA, GASTRITIS&G NELA E ASTRODUODIT IS W/O MENTION HEMORR 2724 OTHER AND 08-22-2008 SAMANTHA, UNSPECIFIED NELA E HYPERLIPIDE GEORGE 4011 ESSENTIAL 08-22-2008 SAMANTHA, HYPERTENSIO NELA E N, BENIGN 68690 ABDOMINAL 08-22-2008 SAMANTHA, PAIN, NELA E EPIGASTRIC [...] SQUARE METERS Comment: If this patient is -[place], then multiply the Comment: result by 1.210. Serum 2 = 3.4 1.3-3.2 complet globuli 017 gm/dL ed n 21:40 measure ment (mass/v olume) Serum = 142 74-106 complet or 017 mg/dL ed plasma 21:40 glucose measure ment (mas Serum = 6.6 3.5-5.1 complet potassi 017 mmoL/L ed um 21:40 measure ment Comment: CRITICAL RESULTS Comment: RESULTS CALLED TO: JOB CHIANG CMM TECHNICIAN Comment: 07/04/172230 Antwon Gomez Serum = 134 136-145 complet sodium 017 mmoL/L ed measure 21:40 ment Serum = 42 15-37 complet or 017 U/L ed plasma 21:40 asparta te aminotr ansfera ALT = 60 12-78 complet (SGPT) 017 U/L ed ser/melissa 21:40 s Protein = 6.8 6.4-8.2 complet total 017 gm/dL ed ser/melissa 21:40 s Serum or plasma troponin i.cardiac measu (07-04-2017 21:40) Serum = 0.51 0.00-0. complet or 017 ng/mL 06 ed plasma 21:40 troponi n i.cardi ac measu Comment: CRITICAL RESULTS Comment: RESULTS CALLED TO: JOB CHIANG CMM TECHNICIAN Comment: 07/04/172231 Antwon Gomez Comment: > 0.5 IS CONSISTENT WITH MYOCARDIAL ISCHEMIA OR INFARCTION Encounters Encounter Start End Date Code Location Performer Type Date [facility] [place] IN[facility] 7 7 [facility] 7 7 [facility] [place] 7 [facility] [place] [facility] 7 7 [facility] - 7 7 [facility] OTHER 7 7 [facility] [place] [facility]PAT[facility] 7 7 [facility] - 7 7 [facility] [place] [facility] 7 7 [facility] - 7 7 [facility] 7 [facility] [place] [facility] 7 7 [facility] [place] [facility] 7 7 [facility] - 7 7 [facility]EN [facility] [place] [facility] 7 7 [facility] [place] [facility] 7 7 [facility] [place] [facility] 7 7 [facility] [place] [facility] 7 [facility] [place] [facility] 6 6 [facility] [place] IN[facility] 6 6 [facility] - 9 9 [facility] 9 9 [facility] - 9 9 [facility]
--- OUTSIDE RECORDS SUMMARY | 2017-07-04 22:49 | External Medical Summary Rpt | CCD ---
Author Author , MUKUL MENJIVARSEE Address Unknown Phone [email or web address] Care Team Providers Care Drawing Instructor Name Role Phone [facility] Unavailable Unavailable ASSOCIATES, [facility] MANUEL MANSFIELD, Unavailable Unavailable [facility], [facility], Unavailable Unavailable [facility] Unavailable Unavailable IMAGING ASS, [facility] NELA SINGH, Unavailable Unavailable NELA SINGH [facility] Unavailable Unavailable COMMUNITY ACT, [facility] Unavailable Unavailable INTERNAL MED, [facility] INTERNAL MED [facility] Unavailable Unavailable INTERNAL MEDI, [facility] INTER[facility], [facility] ELADIO GRISSOM, Unavailable Unavailable ELADIO GRISSOM [facility] Unavailable Unavailable AMBULANCE SE, [facility] AMBULANCE SE [facility], Unavailable Unavailable PLLC, [facility] Unavailable Unavailable SERVICE, [facility] Unavailable Unavailable HEALTH CARE, [facility] Purpose Continuity of Care Document - 08-22-2008 through 2016 Problems Code Diagnosis DOS Provider Status E119 TYPE 2 05-10-2017 [place] DIABETES [facility] MELLITUS HEALTH CARE WITHOUT COMPLICATIO NS E785 HYPERLIPIDE 05-10-2017 [facility] UNSPECIFIED HEALTH CARE G5630 LESION OF 05-10-2017 [facility] NERVE [facility] CARE UNSPECIFIED UPPER LIMB I10 ESSENTIAL 05-10-2017 [facility] HYPERTENSIO HEALTH CARE N K219 GASTRO-ESOP 05-10-2017 [facility] REFLUX [facility] DISEASE HEALTH CARE WITHOUT ESOPHAGITIS G41229 WRIST DROP 05-10-2017 [place] LEFT WRIST [facility] CARE N390 URINARY 05-10-2017 [place] TRACT [facility] INFECTION HEALTH CARE SITE NOT SPECIFIED U29328D UNS 05-10-2017 [facility] LOWER END HEALTH CARE UNS HUMERUS SEQUELA G42792O UNS FX 04-29-2017 [facility] LT HUMERUS INC SUBSQT FX RTN HLNG M01894D UNS DSPLCD 04-29-2017 [facility] FX SURG MEDICAL NECK LT HUM IMAGING ASS SUB FX RTN HLNG W43339 OTHER LONG 04-14-2017 [facility] HEALTH CURRENT ASSOCIATES DRUG THERAPY 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 [facility] SINGLE PHYSICIANS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 R69 ILLNESS 03-12-2017 [place] UNSPECIFIED [facility] E109 TYPE 1 03-11-2017 [facility] DIABETES [facility] MELLITUS ASSOCIATES WITHOUT COMPLICATIO NS E875 HYPERKALEMI 03-11-2017 [facility] E878 OTHER D/O 03-05-2017 [facility] ELECTROLYTE ASSOCIATES AND FLUID BALANCE [employer] [facility] C70038 PAIN IN 02-24-2017 [facility] RIGHT [facility]OT [facility] INC P82209 FX HUM FLW 02-24-2017 [facility] INSRT [facility]THO [facility] IMPL JNT INC PROS/PLAT LT ARM A04671P DSPL FX 02-24-2017 [place] PROX MEDICAL PHALANX RT IMAGING ASS GREAT TOE SBSQT FX RTN F91776S NONDSPL FX 02-24-[address] [facility] PROX PHALNX PHYSICIANS RT GREAT GROUP TOE SBSQT RTN L81795C DSPL FX 02-24-2017 [place] PROX PHALNX MEDICAL RT LESSER IMAGING ASS TOES SBSQT FX RTN X82828L NONDSPLC FX 02-24-[address] [facility] PROX PHAL PHYSICIANS RT LESSER GROUP TOES SUB FX RTN J9811 ATELECTASIS 01-04-2017 [facility] N44605 PAIN IN 01-04-2017 [place] LEFT MEDICAL SHOULDER IMAGING ASS B90361 PAIN IN 01-04-2017 [facility] LEFT WRIST MEDICAL IMAGING ASS J95029 PAIN IN 01-04-2017 [facility] LEFT HIP MEDICAL IM[facility]ING ASS M542 CERVICALGIA 01-04-2017 [facility] R0789 OTHER CHEST 01-04-2017 [facility] F8365NM CONTUSION 01-04-2017 [facility] INITIAL IMAGING ASS ENCOUNTER Y83910T UNS FX 01-04-2017 [facility], LT HUMERUS PLLC INIT CLOS FRACTURE P11345X UNS DSPLCD 01-04-2017 [place] FX SURG MEDICAL NECK LT IMAGING ASS HUMERUS INIT CLOS FX F05481Z NONDISPLACE 01-04-2017 [facility] UNS FX RT PHYSICIANS, GREAT TOE PLLC INIT CLOS FX Y22240Y DSPL FX 01-04-2017 [place] PROX MEDICAL PHALANX RT IMAGING ASS GREAT TOE INIT CLOS FX [id number] DSPL FX 01-04-2017 [place] PROX PHALNX MEDICAL RT LESSER IMAGING ASS TOES INIT DAYO FX T07 UNSPECIFIED 01-04-2017 [facility] INJURIES AMBULANCE SE E62GCNL UNSPECIFIED 01-04-2017 [facility] INITIAL AMBULANCE ENCOUNTER SE Z794 JAIL 01-04-2017 [facility] CURRENT USE [facility] OF INSULIN INC R202 PARESTHESIA 10-20-[address] [facility] OF SKIN PHYSICIANS GROUP Y75497V UNS FX 10-20-2016 [facility] SHAFT HUM MEDICAL LT ARM IMAGING ASS SUBSQT ENC FX RTN HLNG D649 ANEMIA 09-15-[address] [facility] INTERNAL MEDI R05 COUGH 08-22-2016 [facility] X[facility] SERVICE R296 REPEATED 08-16-2016 [place] [facility] MED 63533 DIAB W/O 11-24-2008 SAMANTHA, COMP TYPE NELA E II/UNS NOT STATED UNCNTRL 2859 UNSPECIFIED 11-24-2008 SAMANTHA, ANEMIA NELA E 5990 URINARY 11-14-2008 SAMANTHA, TRACT NELA E INFECTION SITE NOT SPECIFIED 7241 PAIN IN 11-02-2008 [facility] 7242 LUMBAGO 11-02-2008 [facility] 43499 UNSPECIFIED 10-30-2008 SAMANTHA, NELA E CONSTIPATIO N 54953 ABDOMINAL 10-28-2008 [place] [facility], EMERGENCY UNSPECIFIED SERVICES SITE ASSOCIATES 62055 UNS 09-22-2008 SAMANTHA, GASTRITIS&G NELA E ASTRODUODIT IS W/O MENTION HEMORR 2724 OTHER AND 08-22-2008 SAMANTHA, UNSPECIFIED NELA E HYPERLIPIDE GEORGE 4011 ESSENTIAL 08-22-2008 SAMANTHA, HYPERTENSIO NELA E N, BENIGN 38190 ABDOMINAL 08-22-2008 SAMANTHA, PAIN, NELA E EPIGASTRIC [...] -2 -0 0. D 25 SS ti NV 45 3- 8- 00 [place] 01 ON ve N 04 20 20 0 RE 82 AN [address] D 0 PH EP NV AR HE NE MA N RA CY [...] -2 -0 0. D 08 SS ti NV 45 3- 9- 00 CA 24 ON ve N 04 20 20 0 RE 13 AN [address] D 0 PH EP NV AR HE NE MA N RA CY [...] -2 -0 0. D 92 SS ti NV 45 3- 9- 00 CA 71 ON ve N 04 20 20 0 RE 10 AN [address] D 0 PH EP NV AR HE NE MA N RA CY [...] -2 -1 0. D 75 SS ti NV 45 3- 1- 00 CA 13 ON ve N 04 20 20 0 RE 86 AN [address] D 0 PH EP NV AR HE NE MA N RA CY [...] -2 -1 0. D 57 SS ti NV 45 3- 3- 00 CA 24 ON ve N 04 20 20 0 RE 95 AN [address] D 0 PH EP NV AR HE NE MA N RA CY [...] -2 -1 0. D 38 SS ti NV 45 3- 4- 00 CA 83 ON ve N 04 20 20 0 RE 03 AN [address] D 0 PH EP NV AR HE NE MA N RA CY [...] -2 -1 0. D 20 SS ti NV 45 3- 7- 00 CA 95 ON ve N 04 20 20 0 RE 65 AN [address] D 0 PH EP NV AR HE NE MA N RA CY [...] -2 -1 0. D 06 SS ti NV 45 3- 9- 00 CA 31 ON ve N 04 20 20 0 RE 56 AN [address] D 0 PH EP NV AR HE NE MA N RA CY [...] -2 -2 0. D 91 SS ti NV 45 3- 1- 00 CA 72 ON ve N 04 20 20 0 RE 32 AN [address] D 0 PH EP NV AR HE NE MA N RA CY [...] -2 -2 0. D 77 SS ti NV 45 3- 0- 00 CA 01 ON ve N 04 20 20 0 RE 55 AN [address] D 0 PH EP NV AR HE NE MA N RA CY A LS LL TA C BL ET 00 01 01 0 30 30 ME 13 BE Ac TA 90 -2 -2 0. D 64 SS ti NV 45 3- 3- 00 CA 38 ON ve N 04 20 20 0 RE 17 AN [address] D 0 PH EP NV AR HE NE MA N RA CY [...] Performer Type Date [facility] [place] INPATIENT 7 7 [facility] - 7 7 [facility] [place] [facility] 7 7 [facility] [place] [facility]PAT[facility] 7 7 [facility] - 7 7 [facility] 7 7 [facility] [place] [facility]PAT[facility] 7 7 [facility] - 7 7 [facility] [place] [facility] 7 7 [facility] - 7 7 [facility] 7 [facility] [place] [facility] 7 7 [facility] [place] [facility] 7 7 [facility] - 7 7 [facility] [place] [facility] 7 7 [facility] [place] [facility] 7 7 [facility] [place] 7 7 [facility] 7 [facility] IN[facility] 6 6 [facility] 6 6 [facility] - 9 9 [facility] - 9 9 [facility] - 9 9 [facility]
--- OUTSIDE RECORDS SUMMARY | 2017-07-04 22:49 | External Medical Summary Rpt | CCD ---
Author Author , MUKUL MENJIVARSEE Address Unknown Phone [email or web address] Care Team Providers Care Junior Qa Analyst Name Role Phone [facility] Unavailable Unavailable ASSOCIATES, [facility] MANUEL [facility], Unavailable Unavailable [facility] Unavailable Unavailable INC, [facility], Unavailable Unavailable [facility] Unavailable Unavailable [facility], [facility] NELA SINGH, Unavailable Unavailable NELA SINGH [facility] Unavailable Unavailable [facility], [facility] Unavailable Unavailable INTERNAL [facility], [facility] Unavailable Unavailable INTERNAL [facility]I, [facility] Un[facility] Unavailable [facility], [facility] ELADIO GRISSOM, Unavailable Unavailable ELADIO GRISSOM [facility] Unavailable Unavailable AMBULANCE SE, [facility], Unavailable Unavailable PLLC, [facility] Unavailable Unavailable SERVICE, [facility] Unavailable Unavailable HEALTH CARE, [facility] Purpose Continuity of Care Document - 08-22-2008 through 2016 Problems Code Diagnosis DOS Provider Status E119 TYPE 2 05-10-2017 [facility] DIABETES [facility] WITHOUT COMPLICATIO NS E785 HYPERLIPIDE 05-10-2017 [facility] UNSPECIFIED HEALTH CARE G5630 LESION OF 05-10-2017 [facility] CARE UNSPECIFIED UPPER LIMB I10 ESSENTIAL 05-10-2017 [facility] HYPERTENSIO HEALTH CARE N K219 GASTRO-ESOP 05-10-2017 [facility] REFLUX [facility] DISEASE [facility] WITHOUT ESOPHAGITIS L55344 WRIST DROP 05-10-2017 [facility] LEFT WRIST [facility] C[facility] N390 URINARY 05-10-2017 [facility] TRACT [facility] INFECTION HEALTH CARE SITE NOT SPECIFIED [id number] UNS 05-10-2017 [facility] UNS HUMERUS SEQUELA [id number] UNS FX 04-29-2017 [facility] HUMERUS INC SUBSQT FX RTN HLNG [id number] UNS DSPLCD 04-29-2017 [facility] SURG MEDICAL NECK LT HUM IMAGING ASS SUB FX RTN HLNG [id number] OTHER LONG 04-14-2017 [facility] CURRENT ASSOCIATES DRUG THERAPY 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 R69 ILLNESS 03-12-2017 [facility] UNSPECIFIED [facility] E109 TYPE 1 03-11-2017 [facility] DIABETES [facility] MELLITUS ASSOCIATES WITHOUT COMPLICATIO NS E875 HYPERKALEMI 03-11-2017 [facility] E878 OTHER D/O 03-05-2017 [facility] ELECTROLYTE ASSOCIATES AND FLUID BALANCE [facility] H88623 PAIN IN 02-24-2017 [facility]OT [facility] F67569 FX HUM FLW 02-24-2017 [facility] INSRT [facility]THO [facility] IMPL JNT INC PROS/PLAT LT ARM [id number] DSPL FX 02-24-2017 [facility] RT IMAGING ASS GREAT TOE SBSQT FX RTN [id number] NONDSPL FX 02-24-2017 [facility] PROX PHALNX PHYSICIANS RT GREAT GROUP TOE SBSQT RTN [id number] DSPL FX 02-24-2017 [place] PROX PHALNX MEDICAL RT LESSER IMAGING ASS TOES SBSQT FX RTN [id number] NONDSPLC FX 02-24-2017 [facility] PROX PHAL PHYSICIANS RT LESSER GROUP TOES SUB FX RTN [id number] ATELECTASIS 01-04-2017 [facility] B79969 PAIN IN 01-04-2017 [facility] LEFT MEDICAL SHOULDER IM[facility] C06407 PAIN IN 01-04-2017 [facility] LEFT WRIST [facility] S54163 PAIN IN 01-04-2017 [facility] LEFT HIP [facility]ICAL [facility] M542 CERVICALGIA 01-04-2017 [facility] R0789 OTHER CHEST 01-04-2017 [facility] PAIN [facility] [id number] CONTUSION 01-04-2017 [facility] OF [facility] INITIAL IMAGING ASS ENCOUNTER [id number] UNS FX 01-04-2017 [facility], LT HUMERUS PLLC INIT CLOS FRACTURE [id number] UNS DSPLCD 01-04-2017 [place] FX SURG MEDICAL NECK LT IMAGING ASS HUMERUS INIT CLOS FX [id number] NONDISPLACE 01-04-2017 [facility] UNS FX RT PHYSICIANS, GREAT TOE PLLC INIT CLOS FX [id number] DSPL FX 01-04-2017 [place] PROX MEDICAL PHALANX RT IMAGING ASS GREAT TOE INIT CLOS FX [id number] DSPL FX 01-04-2017 [place] PROX PHALNX MEDICAL RT LESSER IMAGING ASS TOES INIT DAYO FX T07 UNSPECIFIED 01-04-2017 [facility] SE [id number] UNSPECIFIED 01-04-2017 [facility] INITIAL AMBULANCE ENCOUNTER SE Z794 SENIOR CARE 01-04-2017 [facility] CURRENT USE [facility] OF INSULIN INC R202 PARESTHESIA 10-20-2016 [facility] GROUP [id number] UNS FX 10-20-2016 [place] SHAFT HUM MEDICAL LT ARM IMAGING ASS SUBSQT ENC FX RTN HLNG D649 ANEMIA 09-15-[address] [facility] INTERNAL MEDI R05 COUGH 08-22-2016 [facility] R296 REPEATED 08-16-2016 [facility] 53556 DIAB W/O 11-24-2008 SAMANTHA, COMP TYPE NELA E II/UNS NOT STATED UNCNTRL 2859 UNSPECIFIED 11-24-2008 SAMANTHA, ANEMIA NELA E 5990 URINARY 11-14-2008 SAMANTHA, TRACT NELA E INFECTION SITE NOT SPECIFIED 7241 PAIN IN 11-02-2008 [facility] 7242 LUMBAGO 11-02-2008 [facility] 24118 UNSPECIFIED 10-30-2008 SAMANTHA, NELA E CONSTIPATIO N 23897 ABDOMINAL 10-28-2008 [place] [facility], EMERGENCY UNSPECIFIED SERVICES SITE ASSOCIATES 15255 UNS 09-22-2008 SAMANTHA, GASTRITIS&G NELA E ASTRODUODIT IS W/O MENTION HEMORR 2724 OTHER AND 08-22-2008 SAMANTHA, UNSPECIFIED NELA E HYPERLIPIDE GEORGE 4011 ESSENTIAL 08-22-2008 SAMANTHA, HYPERTENSIO NELA E N, BENIGN 26995 ABDOMINAL 08-22-2008 SAMANTHA, PAIN, NELA E EPIGASTRIC [...] -2 -0 0. D 25 SS ti [place] 45 3- 8- 00 CA 01 ON ve N 04 20 20 0 RE 82 AN [address] D 0 PH EP WI AR HE NE MA N RA CY [...] -2 -0 0. D 08 SS ti WI 45 3- 9- 00 CA 24 ON ve N 04 20 20 0 RE 13 AN [address] D 0 PH EP WI AR HE NE MA N RA CY [...] -2 -0 0. D 92 SS ti WI 45 3- 9- 00 CA 71 ON ve N 04 20 20 0 RE 10 AN [address] D 0 PH EP WI AR HE NE MA N RA CY [...] -2 -1 0. D 75 SS ti WI 45 3- 1- 00 CA 13 ON ve N 04 20 20 0 RE 86 AN [address] D 0 PH EP WI AR HE NE MA N RA CY [...] -2 -1 0. D 57 SS ti WI 45 3- 3- 00 CA 24 ON ve N 04 20 20 0 RE 95 AN [address] D 0 PH EP WI AR HE NE MA N RA CY [...] -2 -1 0. D 38 SS ti WI 45 3- 4- 00 CA 83 ON ve N 04 20 20 0 RE 03 AN [address] D 0 PH EP WI AR HE NE MA N RA CY [...] -2 -1 0. D 20 SS ti WI 45 3- 7- 00 CA 95 ON ve N 04 20 20 0 RE 65 AN [address] D 0 PH EP WI AR HE NE MA N RA CY [...] -2 -1 0. D 06 SS ti WI 45 3- 9- 00 CA 31 ON ve N 04 20 20 0 RE 56 AN [address] D 0 PH EP WI AR HE NE MA N RA CY [...] -2 -2 0. D 91 SS ti [place] 45 3- 1- 00 CA 72 ON ve N 04 20 20 0 RE 32 AN [address] D 0 PH EP WI AR HE NE MA N RA CY [...] -2 -2 0. D 77 SS ti [place] 45 3- 0- 00 CA 01 ON ve N 04 20 20 0 RE 55 AN [address] D 0 PH EP WI AR HE NE MA N RA CY A LS LL TA C BL ET 00 01 01 0 30 30 ME 13 BE Ac TA 90 -2 -2 0. D 64 SS ti [place] 45 3- 3- 00 CA 38 ON ve N 04 20 20 0 RE 17 AN [address] D 0 PH EP WI AR HE NE MA N RA CY [...] End Date Code Location Performer Type Date [facility] [place] IN[facility]IENT 7 7 [facility] [place] [facility]PAT[facility] 7 7 [facility] 7 7 [facility] [place] 7 7 [facility] - 7 7 [facility] [place] 7 [facility] - 7 7 [facility] 7 [facility] 7 7 [facility] - [facility] 7 [facility] 7 7 [facility] 7 7 [facility] 7 7 [facility] INPAT[facility] 6 6 [facility] 6 [facility] - 9 9 [facility]
--- OUTSIDE RECORDS SUMMARY | 2017-07-04 22:49 | External Medical Summary Rpt ---
Author Author [employer], M[employer]UL [employer] Organization [employer] Address Unknown Phone Unavailable Results Comprehensive metabolic 2000 panel in Serum or Plasma Observa Value Referen Units Interpr Notes Date tion ce etation Range Albumin/G 1.1 - 1.8 No Low No Jul 04 lobulin informati informati 2017 9:40 [Mass on in on in PM ratio] in source source Serum or data data Plasma Albumin 3.4 - 5.0 gm/dL No Jul 04 [Mass/vol informati informati 2016 9:40 ume] in on in on in PM Serum or source source Plasma data data Alkaline 46 - 116 U/L Normal No Jul 04 phosphata informati 2016 9:40 se on in PM [Enzymati source c data activity/ volume] in Serum or Plasma Bilirubin 0.2 - 1.0 mg/dL Normal No Jul 04 .total informati 2016 9:40 [Mass/vol on in PM ume] in source Serum or data Plasma Urea 7 - 18 mg/dL High No Jul 04 nitrogen informati 2016 9:40 [Mass/vol on in PM ume] in source Serum or data Plasma Calcium 8.5 - mg/dL Normal No Jul 04 [Mass/vol 10.1 informati 2016 9:40 ume] in on in PM Serum or source Plasma data Chloride 98 - 107 mmoL/L Low No Jul 04 [Moles/vo informati 2017 9:40 lume] in on in PM Serum or source Plasma data Carbon 21.0 - mmoL/L Normal No Jul 04 dioxide, 32.0 informati 2017 9:40 total on in PM [Moles/vo source lume] in data Serum or Plasma Creatinin 0.55 - mg/dL High No Jul 04 e 1.02 informati 2017 9:40 [Mass/vol on in PM ume] in source Serum or data Plasma Creatinin 50 - 200 ML/MIN Low No Jul 04 e renal informati 2017 9:40 clearance on in PM source predicted data by Cockcroft -Gault formula Estimated 59- ML/MIN Low alert REFERENCE Jul 04 RANGE: 2017 9:40 glomerula >60 PM r ML/MIN/1. filtratio 73 SQUARE n rate METERSIf (GF this patient is -A merican, then multiply theresult by 1.210. Globulin 1.3 - 3.2 gm/dL High No Jul 04 [Mass/vol informati 2016 9:40 ume] in on in PM Serum source data Glucose 74 - 106 mg/dL High No Jul 04 [Mass/vol informati 2016 9:40 ume] in on in PM Serum or source Plasma data Potassium 3.5 - 5.1 mmoL/L High Jul 04 alert 2016 9:40 [Moles/vo CRITICAL PM lume] in RESULTS Serum or Plasma RESU LTS CALLED TO: JOB [place]07/041 Rachael Gomez Sodium 136 - 145 mmoL/L Low No Jul 04 [Moles/vo informati 2017 9:40 lume] in on in PM Serum or source Plasma data Aspartate 15 - 37 U/L High No Jul 04 informati 2016 9:40 aminotran on in PM sferase source [Enzymati data c activity/ volume] in Serum or Plasma Alanine 12 - 78 U/L Normal No Jul 04 aminotran informati 2016 9:40 sferase on in PM [Enzymati source c data activity/ volume] in Serum or Plasma Protein 6.4 - 8.2 gm/dL No No Jul 04 [Mass/vol informati informati 2016 9:40 ume] in on in on in PM Serum or source source Plasma data data Troponin I.cardiac [Mass/volume] in Serum or Plasma Observa Value Referen Units Interpr Notes Date tion ce etation Range Troponin 0.00 - ng/mL High Jul 04 I.cardiac 0.06 2016 9:40 CRITICAL PM [Mass/vol RESULTS ume] in Serum or RESU Plasma LTS CALLED TO: [place]07/04 2232 aRchael Gomez hn> 0.5 IS CONSISTEN T WITH MYOCARDIA L ISCHEMIA OR INFARCTIO N Lactate [Moles/volume] in Blood Observa Value Referen Units Interpr Notes Date tion ce etation Range Lactate 0.4 - 2.0 mmol/L Normal No Jul 04 [Moles/vo informati 2016 9:40 lume] in on in PM Blood source data Thyroxine (T4) free [Mass/volume] in Serum or Plasma Observa Value Referen Units Interpr Notes Date ti ce etation Range Thyroxine 0.76 - ng/dL Normal No Feb 19 (T4) 1.46 informati 2016 2:00 free on in PM [Mass/vol source ume] in data Serum or Plasma Thyrotropin [Units/volume] in Serum or Plasma Observa Value Referen Units Interpr Notes Date ti ce etation Range Thyrotrop 0.358 - uIU/ml No No Feb 19 in 3.740 informati informati 2016 2:00 [Units/vo on in on in PM lume] in source source Serum or data data Plasma Free T4 & TSH panel in Serum or Plasma Observa Value Referen Units Interpr Notes Date ti ce etation Range Thyroxine 5.93 - ug/dl [...] Normal No January 04 in time 11.8 informati 2016 3:45 (PT) in on in AM Platelet source poor data plasma by Coagulati on assay CBC W Auto Differential panel in Blood Observa Value Referen Units Interpr Notes Date tion ce etation Range Basophils 0 - 0.2 K/MM3 Normal No January 04 informati 2016 3:15 [#/volume on in AM ] in source Blood by data Automated count Basophils 0.1 - 2.0 % Normal No January 04 /100 informati 2016 3:15 leukocyte on in AM s in source Blood by data Automated count Eosinophi 0.0 - 0.4 K/mm3 Normal No January 04 ls informati 2016 3:15 [#/volume on in AM ] in source Blood by data Automated count Eosinophi 0.1 - % Normal January 04 ls/100 12.0 informati 2016 3:15 leukocyte on in AM s in source Blood by data Automated count Granulocy 1.8 - 7.8 K/mm3 Normal No January 04 lola informati 2016 3:15 [#/volume on in AM ] in source Blood by data Automated count Granulocy 37.0 - % Normal No January 04 lola/100 80.0 informati 2016 3:15 leukocyte on in AM s in source Blood by data Automated count Hematocri 37.0 - % Low No January 04 t [Volume 47.0 informati 2016 3:15 on in AM Fraction] source of Blood data Hemoglobi 12.2 - g/dL Low January 04 n 16.2 informati 2016 3:15 [...] Automated count Platelet 7.4 - fl Normal No January 04 mean 10.4 informati 2016 3:15 [...] data fluid Erythrocy 11.5 - % Normal January 04 te 17.5 informati 2016 3:15 distribut on in AM ion width source [Entitic data volume] by Automated count Leukocyte 4.8 - K/MM3 Normal No January 04 s 10.8 informati 2016 3:15 [#/volume on in AM ] in source Blood data
--- OUTSIDE RECORDS SUMMARY | 2017-07-04 22:49 | External Medical Summary Rpt | CCD ---
Author Author , MUKUL Organization MUKUL Address Unknown Phone [email or web address] Immunization Name Date Rout CVX Reac Dose Comm Prov Is Faci e tion ent ider Refu lity Give sed n Td 03-0 9 999 Hist H149 No H149 (rekha 4-19 oric lt), 97 al Info adso rmat rbed ion - Sour ce Unsp ecif ied
--- OUTSIDE RECORDS SUMMARY | 2017-07-04 22:49 | External Medical Summary Rpt ---
Author Author [employer], [employer] Organization [employer] Address Unknown Phone Unavailable [...] or Plasma RESU LTS CALLED TO: [facility]/041 Rachael Gomez Sodium 136 - 145 mmoL/L [...] Serum or RESU Plasma LTS CALLED TO: [facility]/04 2232 Rachael Gomez hn> 0.5 IS CONSISTEN T WITH [...]
--- OUTSIDE RECORDS SUMMARY | 2017-07-04 22:49 | External Medical Summary Rpt | CCD ---
Author Author , MUKUL Organization MUKUL Address Unknown Phone [email or web address] Immunization Name Date Rout CVX Reac Dose Comm Prov Is Faci e tion ent ider Refu lity Give sed n Td 03-0 9 999 Hist H149 No H149 (rekha 4-19 oric lt), 97 al Info adso rmat rbed ion - Sour ce Unsp ecif ied
[2017-07-04 22:52] LABS: URINE BLOOD 1+ (NEG)
[2017-07-04 22:57] LABS: URINE BILIRUBIN - DIPSTICK NEGATIVE (NEG)
[2017-07-04 23:13] LABS: NEUTROPHILS 78 % (42-76)
[2017-07-04 23:34] VITALS: BP 107/46
[2017-07-05] VITALS (9 sets, daily range): BP systolic 91–123; BP diastolic 40–71
[2017-07-05 06:24] LABS: HEMOGLOBIN 9.1 g/dL (12.2-16.2); LYMPH # 1.3 K/mm3 (0.7-4.5)
--- NOTE | 2017-07-05 07:24 | HISTORY AND PHYSICAL REPORT ---
Demographics: Admit date: 07/04/17 Chief complaint: Malaise PRIMARY DIAGNOSIS: HCAP; ACUTE RENAL FAILURE; HYPERKALEMIA Allergies: Coded Allergies: Sulfa (Sulfonamide Antibiotics) (I-RASH 05/23/16) History of present illness: History of present illness: 76-year-old female resident [facility] [place] transferred to the emergency department yesterday evening due to complaint of several days of malaise with cough. Workup in the emergency Department discovered a RIGHT lung infiltrate along with acute kidney injury and hyperkalemia. Patient was started on broad-spectrum antibiotic coverage for healthcare acquired pneumonia. She was started on IV fluids as well as given Kayexalate, D50 and insulin, albuterol nebs for her hyperkalemia. This morning the patient states she's feeling some better. She feels like her cough is been present for at least 3 days and maybe longer. Cough while lose has been nonproductive so far. She denies fevers or chills at the care home. Past medical history: Family HX Family Hx Insignificant No Diabetes No CAD Yes Hypertension Yes Hyperlipidemia No Cancer Yes TB No Immunization HX DT/Tetanus 5-10 Years Ago Flu 2015-FSN Pneumonia Refuses TB Test in last year Yes Result Negative General CAD? No Angina: No [place]: No Hypertension? Yes Hyperlipidemia? Yes CHF? No DVT? No PE? No COPD? No Asthma? No Anemia? No GERD? Yes Gastric ulcers? No GI Bleed? No Hernia? No Thyroid Problems? No Hypothyroidism? No CVA? No Seizures? 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 Yes Renal Insuffiency? No UTI? Yes Stones? No BPH? No GB Disease: Yes Nephritic Syndrome? No Asplenia? No Hepatitis? No Sickle Cell Disease? No Arthritis? No Migraines? No Cataracts? Yes Glaucoma? No MRSA? No HIV? No TB? No Anxiety? No Depression? No Cancer? No Past Surgical HX Previous Surgery?Y Tubal Ligation HYSTERECTOMY APPY LORAINE CATARACTS [employer]bl[employer]ER LEFT HIP REPAIR CARPAL TUNNEL R HAND LEFT ORIF ARM Current home meds: Active Scripts Loratadine (Claritin 10MG Tab) 10 MG PO QAM #90 TAB Ref 1 Prov: 11/22/15 Reported Medications METFORMIN HCL (Metformin 1000MG) 1,000 MG PO BID Esomeprazole Magnesium (Nexium 40MG Cap) 40 MG PO DAILY Oyster Shell (Oscal 500MG Tablet) 500 MG PO DAILY MULTIVIT,THER IRON,CA,FA & MIN (Sm Therapeutic M Tablet) 1 TAB PO DAILY NEBIVOLOL HCL (Bystolic) 20 MG PO DAILY #30 TAB ASPIRIN (Aspirin 325MG) 325 MG PO DAILY Pioglitazone HCl (Actos) 45 MG PO DAILY Ferrous Sulfate (Ferrous Sulfate 325MG) 325 MG PO BID Diazepam (Valium 5MG) 5 MG PO Q6HP PRN ANXIETY HYDROCODONE/ACETAMINOPHEN (Lortab 5-325 MG Tablet) 1 TAB PO Q4HP PRN PAIN Lactulose (Lactulose) 10 GM PO DAILY PRN CONSTIPATION POLYETHYLENE GLYCOL (Miralax) 17 GM PO DAILY PRN CONSTIPATIONI Rosuvastatin Calcium (Crestor) 20 MG PO QHS AMLODIPINE BESYLATE/BENAZEPRIL (Amlodipine-Benazepril 10-20 MG) 10 TAB PO DAILY INSULIN NPL/INSULIN LISPRO (Humalog Mix 75-25 Kwikpen) 44 UNITS SC DAILY INSULIN NPL/INSULIN LISPRO (Humalog Mix 75-25 Kwikpen) 40 UNITS SC DAILY 5PM Benazepril Hcl (Lotensin 20MG Tab) 20 MG PO DIALY Acetaminophen (Acetaminophen Extra Strength) 500 MG PO Q6HP PRN PAIN Bisacodyl (Bisacodyl Supp) 10 MG MT DAILYP PRN constipation Ondansetron (Zofran 4MG Odt) 4 MG PO Q6HP PRN NAUSEA AND VOMITING Escitalopram Oxalate (Escitalopram 20MG) 5 MG PO DAILY Furosemide (Lasix) 10 MG PO DAILY Gabapentin (Gabapentin 600MG) 600 MG PO QHS #30 Social Hx: Smoking HX Tobacco No Alcohol Alcohol: No Hx of Drug Use Drug Use? No Review of systems: Constitutional see HPI. Respiratory see HPI. No: shortness of breath. Cardiovascular no symptoms reported Gastrointestinal/Abdominal no symptoms reported Genitourinary no symptoms reported. Musculoskeletal no symptoms reported. Neurological Yes: weakness. Exam: Lab data for last 24 hours: Laboratory Tests 07/05/17 0600: Sodium 137, Potassium 5.6 H, Chloride 100, Carbon Dioxide 29, BUN 48 H, Creatinine 3.5 H, Estimated Creat Clear 18 L, Estimated GFR (MDRD) 13 *L, Glucose 97, Calcium 8.3 L, WBC 16.4 H, RBC 3.21 L, Hgb 9.1 L, Hct 29.4 L, MCV 91.7, RDW 16.1, Plt Count 143, MPV 10.7 H, Gran % 85.3 H, Gran # 14.0 H, Lymphocytes % 8.0 L, Monocytes % 6.6, Eosinophils % 0.1, Basophils % 0.1, Lymphocytes # 1.3, Monocytes # 1.1 H, Eosinophils # 0.0, Basophils # 0.0, PUBS MCHC 31.1 L, MCH 28.5 07/04/172199: Urine Color YELLOW, Urine Appearance CLOUDY, Urine pH 5.0, Ur Specific [place] > = 1.030, Urine Protein 1+ H, Urine Ketones TRACE H, Urine Blood 1+ H, Urine Nitrate NEGATIVE, Urine Bilirubin NEGATIVE, Urine Urobilinogen 0.2, Ur Leukocyte Esterase 2+ H, Urine RBC 10-20, Urine WBC TNTC, Urine Glucose NEGATIVE 07/04/172139: Lactic Acid 2.0 07/04/172139: Sodium 134 L, Potassium 6.6 *H, Chloride 97 L, Carbon Dioxide 28, BUN 43 H, Creatinine 3.6 H, Estimated Creat Clear 17 L, Estimated GFR (MDRD) 12 *L, Glucose 142 H, Calcium 9.0, Total Bilirubin 0.7, AST 42 H, ALT 60, Alkaline Phosphatase 57, Troponin I 0.51 H, Total Protein 6.8, Albumin 3.4, Globulin 3.4 H, Albumin/Globulin Ratio 1.0 L, WBC 18.0 H, RBC 3.53 L, Hgb 9.9 L, Hct 32.5 L, MCV 92.0, RDW 16.0, Plt Count 153, MPV 11.0 H, Gran % 85.9 H, Gran # 15.4 H, Total Counted 100, Lymphocytes % 10.1, Monocytes % 3.8, Eosinophils % 0.1, Basophils % 0.2, Neutrophils 78 H, Band Neutrophils 11 H, Lymphocytes ( Manual) 8 L, Lymphocytes # 1.8, Monocytes (Manual) 3, Monocytes # 0.7, Eosinophils # 0.0, Basophils # 0.0, Platelet Estimate NORMAL, Hypochromasia 3+, Anisocytosis 1+, Rouleaux SL., PUBS MCHC 30.6 L, MCH 28.2 Microbiology 07/04 2200 URINE CATH: Urine Culture - RES 07/04 2140 BLOOD: Anaerobic Blood Culture - RECD 07/04 2140 BLOOD: Aerobic Blood Culture - RECD 07/04 2140 BLOOD: Anaerobic Blood Culture - RECD 07/04 2140 BLOOD: Aerobic Blood Culture - RECD Admission vital signs: 1ST Vital Signs Result Date Time Pulse Ox 66 07/04 2129 B/P 123/50 07/04 2129 Temp 99.3 07/04 2129 Pulse 68 07/04 2129 Resp 20 07/04 2129 O2 Flow Rate 2 07/04 2255 O2 Delivery OXYGEN 07/04 2359 Vital Signs Date Time Temp Pulse Resp B/P Pulse O2 O2 Flow FiO2 Ox Delivery Rate 07/05 0631 2 07/05 0452 2 07/05 0413 2 07/05 0413 97.9 58 20 94/60 99 OXYGEN 2 07/05 0258 2 07/05 0210 2 07/05 0052 2 07/05 0036 98.1 71 20 113/71 95 OXYGEN 2 07/04 2359 62 07/04 2359 97 OXYGEN 07/04 2334 99.3 62 20 107/46 07/04 2326 99.3 62 20 107/46 97 2 Exam General appearance: awake, no acute distress Eyes: anicteric ENT: mucous membranes moist Neck: supple Cardiovascular: regular rate & rhythm Respiratory: on oxygen, basilar rales (right) ABD: soft, no tenderness Extremities: moves all Musculoskeletal: motor intact, sensation intact Plan: Problem List 1. Healthcare-associated pneumonia 2. Acute renal failure 3. Hyperkalemia 4. Hypoxia Plan: 1. Broad-spectrum antibiotic coverage for pneumonia 2. Continue Kayexalate and IV fluids for hyperkalemia 3. Home medications 4. Out of bed to chair today at 0723
--- NOTE | 2017-07-05 10:29 | CONSULT NOTE ---
Pharmacokinetic Consult Date of consult: 07/05/17 Time of consult: 1027 Referring provider: DR. RENTERIA Reason for consult: VANCOMYCIN DOSING Allergies: Coded Allergies: Sulfa (Sulfonamide Antibiotics) (I-RASH 05/23/16) Home Medications: Active Scripts Loratadine (Claritin 10MG Tab) 10 MG PO QAM #90 TAB Ref 1 Prov: 11/22/15 Reported Medications METFORMIN HCL (Metformin 1000MG) 1,000 MG PO BID Esomeprazole Magnesium (Nexium 40MG Cap) 40 MG PO DAILY Oyster Shell (Oscal 500MG Tablet) 500 MG PO DAILY MULTIVIT,THER IRON,CA,FA & MIN (Sm Therapeutic M Tablet) 1 TAB PO DAILY NEBIVOLOL HCL (Bystolic) 20 MG PO DAILY #30 TAB ASPIRIN (Aspirin 325MG) 325 MG PO DAILY Pioglitazone HCl (Actos) 45 MG PO DAILY Ferrous Sulfate (Ferrous Sulfate 325MG) 325 MG PO BID Diazepam (Valium 5MG) 5 MG PO Q6HP PRN ANXIETY HYDROCODONE/ACETAMINOPHEN (Lortab 5-325 MG Tablet) 1 TAB PO Q4HP PRN PAIN Lactulose (Lactulose) 10 GM PO DAILY PRN CONSTIPATION POLYETHYLENE GLYCOL (Miralax) 17 GM PO DAILY PRN CONSTIPATIONI Rosuvastatin Calcium (Crestor) 20 MG PO QHS AMLODIPINE BESYLATE/BENAZEPRIL (Amlodipine-Benazepril 10-20 MG) 10 TAB PO DAILY INSULIN NPL/INSULIN LISPRO (Humalog Mix 75-25 Kwikpen) 44 UNITS SC DAILY INSULIN NPL/INSULIN LISPRO (Humalog Mix 75-25 Kwikpen) 40 UNITS SC DAILY 5PM Benazepril Hcl (Lotensin 20MG Tab) 20 MG PO DIALY Acetaminophen (Acetaminophen Extra Strength) 500 MG PO Q6HP PRN PAIN Bisacodyl (Bisacodyl Supp) 10 MG [place] DAILYP PRN constipation Ondansetron (Zofran 4MG Odt) 4 MG PO Q6HP PRN NAUSEA AND VOMITING Escitalopram Oxalate (Escitalopram 20MG) 5 MG PO DAILY Furosemide (Lasix) 10 MG PO DAILY Gabapentin (Gabapentin 600MG) 600 MG PO QHS #30 Height (feet): 5 Height (inches): 6.00 Medical History: CAD? No Angina: No IA: No Hypertension? Yes Hyperlipidemia? Yes CHF? No DVT? No PE? No COPD? No Asthma? No Anemia? No GERD? Yes Gastric ulcers? No GI Bleed? No Hernia? No Thyroid Problems? No Hypothyroidism? No CVA? No Seizures? 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 Yes Renal Insuffiency? No UTI? Yes Stones? No BPH? No GB Disease: Yes Nephritic Syndrome? No Asplenia? No Hepatitis? No Sickle Cell Disease? No Arthritis? No Migraines? No Cataracts? Yes Glaucoma? No MRSA? No HIV? No TB? No Anxiety? No Depression? No Cancer? No Labs: Laboratory Tests 07/05/17 0600: Sodium 137, Potassium 5.6 H, Chloride 100, Carbon Dioxide 29, BUN 48 H, Creatinine 3.5 H, Estimated Creat Clear 18 L, Estimated GFR (MDRD) 13 *L, Glucose 97, Calcium 8.3 L, WBC 16.4 H, RBC 3.21 L, Hgb 9.1 L, Hct 29.4 L, MCV 91.7, RDW 16.1, Plt Count 143, MPV 10.7 H, Gran % 85.3 H, Gran # 14.0 H, Lymphocytes % 8.0 L, Monocytes % 6.6, Eosinophils % 0.1, Basophils % 0.1, Lymphocytes # 1.3, Monocytes # 1.1 H, Eosinophils # 0.0, Basophils # 0.0, PUBS MCHC 31.1 L, MCH 28.5 07/04/170: Urine Color YELLOW, Urine Appearance CLOUDY, Urine pH 5.0, Ur Specific [place] > = 1.030, Urine Protein 1+ H, Urine Ketones TRACE H, Urine Blood 1+ H, Urine Nitrate NEGATIVE, Urine Bilirubin NEGATIVE, Urine Urobilinogen 0.2, Ur Leukocyte Esterase 2+ H, Urine RBC 10-20, Urine WBC TNTC, Urine Glucose NEGATIVE 07/04/172139: Lactic Acid 2.0 07/04/172139: Sodium 134 L, Potassium 6.6 *H, Chloride 97 L, Carbon Dioxide 28, BUN 43 H, Creatinine 3.6 H, Estimated Creat Clear 17 L, Estimated GFR (MDRD) 12 *L, Glucose 142 H, Calcium 9.0, Total Bilirubin 0.7, AST 42 H, ALT 60, Alkaline Phosphatase 57, Troponin I 0.51 H, Total Protein 6.8, Albumin 3.4, Globulin 3.4 H, Albumin/Globulin Ratio 1.0 L, WBC 18.0 H, RBC 3.53 L, Hgb 9.9 L, Hct 32.5 L, MCV 92.0, RDW 16.0, Plt Count 153, MPV 11.0 H, Gran % 85.9 H, Gran # 15.4 H, Total Counted 100, Lymphocytes % 10.1, Monocytes % 3.8, Eosinophils % 0.1, Basophils % 0.2, Neutrophils 78 H, Band Neutrophils 11 H, Lymphocytes ( Manual) 8 L, Lymphocytes # 1.8, Monocytes (Manual) 3, Monocytes # 0.7, Eosinophils # 0.0, Basophils # 0.0, Platelet Estimate NORMAL, Hypochromasia 3+, Anisocytosis 1+, Rouleaux SL., PUBS MCHC 30.6 L, MCH 28.2 Microbiology 07/04 2200 URINE CATH: Urine Culture - RES 07/04 2140 BLOOD: Anaerobic Blood Culture - RECD 07/04 2140 BLOOD: Aerobic Blood Culture - RECD 07/04 2140 BLOOD: Anaerobic Blood Culture - RECD 07/04 2140 BLOOD: Aerobic Blood Culture - RECD Problem List: 1. Healthcare-associated pneumonia Plan: BASED ON PATIENT FACTORS, RECOMMEND VANCOMYCIN 1500 MG IV ONCE, FOLLOWED BY VANCOMYCIN 1250 MG IV Q48H. WILL OBTAIN VANCOMYCIN TROUGH LEVEL PRIOR TO DOSE ON 07/08/17. PHARMACY WILL FOLLOW DAILY AND ADJUST APPROPRIATE. at [id number]
--- NOTE | 2017-07-05 10:44 | PHARMACY CLINIC NOTE ---
Patient Demographics Patient Demographics Admission date: 07/04/17 Date: 07/05/17 Time: 1043 Allergies Coded Allergies: Sulfa (Sulfonamide Antibiotics) (I-RASH 05/23/16) HEIGHT- FT: 5 IN: 6.00 K.269 VTE General Information Labs: Laboratory Tests 07/05 07/04 0600 2140 Hematology Hgb (12.2 - 16.2 g/dL) 9.1 L 9.9 L Hct (37.0 - 47.0 %) 29.4 L 32.5 L Plt Count (142 - 424 K/mm3) 143 153 Disclaimer The following section includes nursing documentation that has been pulled in for pharmacy review. Patient's VTE score: 3 Patient's VTE Risk: LOW RISK Clinical trial participant? No VTE prophylaxis [id number] VTE prophylaxis ordered? Yes Type of prophylaxis/treatment: ELYSSA at 1043
[2017-07-05] MEDS ORDERED: AMLODIPINE10 MG PO (11:14)
--- NOTE | 2017-07-05 13:53 | RADIOLOGY REPORT PS360 ---
CHEST-PORTABLE Ordering Physician: Charles Grande MD Patient Age: 76 years: Female HISTORY: cough, tired clinically pneumonia suggested TECHNIQUE: AP portable upright chest COMPARISON :01/04/2017 CXR and 05/13/2016 CXR FINDINGS Focal density at the right midlung, new since previous studies at most likely reflecting a patchy area of dense infiltrate. It is projected over the course of the anterior fourth rib follow-up PA and lateral chest film be important to verify regression and resolution of this density and exclude any other associated density. . Rib series at d 2-3 weeks follow-up may be of benefit as well particularly if anterior chest wall pain. Left chest. Linear areas of scarring and atelectasis at left midlung and towards the left noelle. Cannot exclude minimal patchy infiltrate at the left infrahilar region but favor atelectasis here as well.. There is elevation left hemidiaphragm similar to previous chest films associated with the scarring and atelectasis at left base, previously noted but versus 2016 studies. Borderline cardiomegaly. Noelle and mediastinal structures appear stable. Old left proximal humeral fracture seen on 04/29/2017 CXR. Mild impaction. Partial healing. In addition today's study partial images the distal left humerus metallic plate which provides fixation to the distal humerus fracture IMPRESSION - 1. Right lung:: Focal opacity right midlung most likely dense patchy area of pneumonia, particularly if symptoms support such However follow-up chest films would be important to exclude underlying lesion here 2. Left lung. Additional linear areas of scarring atelectasis left midlung left base. Stable elevation left hemidiaphragm. 3. Cardiomegaly.. No CHF 4. Healing fracture surgical neck of humerus...
[2017-07-05 14:12] LABS: AEROMONAS NOT DETECTED (NOT DETECTE); ASTROVIRUS NOT DETECTED (NOT DETECTE); CYCLOSPORA CAYETANENSIS NOT DETECTED (NOT DETECTE); E COLI O157 NOT DETECTED (NOT DETECTE); ENTEROAGGREGATIVE E COLI NOT DETECTED (NOT DETECTE); ENTEROPATHOGENIC E COLI NOT DETECTED (NOT DETECTE); ENTEROTOXIGENIC E COLI NOT DETECTED (NOT DETECTE); NOROVIRUS NOT DETECTED (NOT DETECTE); SAPOVIRUS NOT DETECTED (NOT DETECTE); SHIGA-LIKE TOXIN PROD. E COLI NOT DETECTED (NOT DETECTE); SHIGELLA/ENTEROINVASIVE E COLI NOT DETECTED (NOT DETECTE); VIBRIO CHOLERAE NOT DETECTED (NOT DETECTE)
[2017-07-06 03:33] VITALS: BP 136/41
[2017-07-06 04:24] LABS: HEMOGLOBIN 9.3 g/dL (12.2-16.2); LYMPH # 1.3 K/mm3 (0.7-4.5); LYMPH % 14.6 % (10-50.0)
[2017-07-06 07:48] VITALS: BP 127/69
--- NOTE | 2017-07-06 08:48 | DISCHARGE SUMMARY STANDARD ---
See Addendum Demographics Admit date: 07/04/17 Discharge date: 07/06/17 History of present illness History of present illness 76-year-old female resident of [facility] was transferred to the emergency department yesterday evening due to complaint of several days of malaise with cough. Workup in the emergency Department discovered a RIGHT lung infiltrate along with acute kidney injury and hyperkalemia. Patient was started on broad-spectrum antibiotic coverage for healthcare acquired pneumonia. She was started on IV fluids as well as given Kayexalate, D50 and insulin, albuterol nebs for her hyperkalemia. This morning the patient states she's feeling some better. She feels like her cough is been present for at least 3 days and maybe longer. Cough while lose has been nonproductive so far. She denies fevers or chills at the senior living. Hospital Course Hospital Course: Patient was admitted as noted above and started on broad-spectrum antibiotics. Very nicely and her creatinine has improved almost back to her baseline this morning. Hyperkalemia resolved. Urine culture showed Klebsiella, sensitive to multiple different IV and by mouth antibiotics. Blood cultures are negative at 48 hours, sputum cultures have not been received. This morning she is doing well, is alert, oriented 2, vastly improved over admission, with a little fuzziness about the date today. Exam reveals clear lungs, occasional rhonchi but this clears with a deep breath, regular heart rate, abdomen soft with good bowel function, no edema in her legs. She has no skin rash. She has no facial asymmetry. Plan will be to transfer back to senior living with by mouth antibiotics to cover both urinary tract infection and her lobar pneumonia. She will need BMP on Thursday of this week, July 10, and she will need ongoing physical therapy/ occupational therapy for enhanced mobilization. Discharge diagnoses Problem List 1. Healthcare-associated pneumonia 2. Acute renal failure 3. Hyperkalemia 4. Hypoxia 5. UTI (urinary tract infection) Medications Medications: Discharge meds are as noted. Follow up Follow up in office in: 3 DAYS with: BARBARA MILIAN APRN at 0848
--- NOTE | 2017-07-06 08:48 | DISCHARGE SUMMARY STANDARD ---
See Addendum Demographics Admit date: 07/04/17 Discharge date: 07/06/17 History of present illness History of present illness 76-year-old female resident of [facility] was transferred to the emergency department yesterday evening due to complaint of several days of malaise with cough. Workup in the emergency Department discovered a RIGHT lung infiltrate along with acute kidney injury and hyperkalemia. Patient was started on broad-spectrum antibiotic coverage for healthcare acquired pneumonia. She was started on IV fluids as well as given Kayexalate, D50 and insulin, albuterol nebs for her hyperkalemia. This morning the patient states she's feeling some better. She feels like her cough is been present for at least 3 days and maybe longer. Cough while lose has been nonproductive so far. She denies fevers or chills at the [facility]. Hospital Course Hospital Course: Patient was admitted as noted above and started on broad-spectrum antibiotics. Very nicely and her creatinine has improved almost back to her baseline this morning. Hyperkalemia resolved. Urine culture showed Klebsiella, sensitive to multiple different IV and by mouth antibiotics. Blood cultures are negative at 48 hours, sputum cultures have not been received. This morning she is doing well, is alert, oriented 2, vastly improved over admission, with a little fuzziness about the date today. Exam reveals clear lungs, occasional rhonchi but this clears with a deep breath, regular heart rate, abdomen soft with good bowel function, no edema in her legs. She has no skin rash. She has no facial asymmetry. Plan will be to transfer back to [facility] with by mouth antibiotics to cover both urinary tract infection and her lobar pneumonia. She will need BMP on Thursday of this week, July 10, and she will need ongoing physical therapy/ occupational therapy for enhanced mobilization. Discharge diagnoses Problem List 1. Healthcare-associated pneumonia 2. Acute renal failure 3. Hyperkalemia 4. Hypoxia 5. UTI (urinary tract infection) Medications Medications: Discharge meds are as noted. Follow up Follow up in office in: 3 DAYS with: BARBARA MILIAN APRN at 0848
[2017-07-06] MEDS ORDERED: OMNICEF 300 MG300 MG PO (08:51)
[2017-07-06] MEDS ORDERED: ZITHROMAX Z-PA250 M2 PO (08:51)
[2017-07-06 08:54] VITALS: BP 127/69
[2017-07-06 10:56] VITALS: BP 127/69
== END 2017-07-06 10:45 | DRG 194 ==
LOC: ER 21:26 → 2ND 22:42
PROVIDERS: Emergency Medicine; Family Medicine; Internal Medicine Adolescent Medicine
DX: J18.9 Pneumonia, unspecified organism (principal); N39.0 Urinary tract infection, site not specified; N17.9 Acute kidney failure, unspecified; E11.9 Type 2 diabetes mellitus without complications; I10 Essential (primary) hypertension; Y95 Nosocomial condition; Z79.4 Long term (current) use of insulin
CPT/HCPCS: J0692; J1956; J3370